=== PATIENT | female | born 1955 | race Caucasian/White ===

== ENCOUNTER → 2017-10-10 | Outpatient (CLI) | payer OTHER ==
[~2017-10-10] MED LIST: ALBIPROI INH; ALISKIREN PO; AMIT10 PO; AMLO5; AMOX500 PO; ASPI325 PO; CEPH500 PO; CHOL10002 PO; CIPR250 PO; CIPR500 PO; CITA20 PO; CLIN150 PO; CLON.1 PO; COLC.6 PO; CYAN1000 PO; DOXA1 PO; DOXA2 PO; DOXY100 PO; DULO30; DULO60 PO; FURO20 PO; FURO40 PO; FURO80 PO; Flomax0.4 MG PO; HYDACE5 PO; HYDGUAL120 PO; HYDPAM25 PO; HYDR1TAB94 PO; Hydrocodone-Ap1 EA23 PO; IBUP400 PO; IBUP600 PO; KETO10 PO; LEVFLO500 PO; LEVSOD25 PO; LEVSOD75; LISHYD2025 PO; LOSARTAN POTASS50 MG PO; NAPR500 PO; NAPR550 PO; NITR.4SL SL; Norco 5-325 Ta1 EACH PO; OFLO.3OTSO LEFTEAR; OMEP20ER PO; OXYACE5T PO; PARI1 PO; PHENA100 PO; PHENA200 PO; PRAV20 PO; PRED10 PO; PROM25 PO; Percocet 5-3251 EACH PO; Prednisone20 MG PO; Prilosec Otc20 MG PO; Prilosec20 MG PO; RANI150 PO; RXCLIN PO; RXPHEN200 PO; TOBDEXOPSU BOTHEYES; TRAM50 PO; TRAZ100 PO; Ultram50 MG PO; VALS80 PO; VALSARTAN PO; Zofran Odt8 MG SL; Zofran8 MG PO
== END ==
LOC: LAB SHORT 11:52 → LAB 11:52
PROVIDERS: Obstetrics & Gynecology
DX: Z01.419 Encounter for gynecological examination (general) (routine) without abnormal findings (principal)
CPT/HCPCS: 87624; G0123

== ENCOUNTER 2017-10-26 09:40 | Emergency (ER) | payer OTHER ==
[~2017-10-26] VITALS: Ht 160 cm; Wt 170.1 kg
[2017-10-26] MEDS ORDERED: CYCL10 PO (11:31)
== END 2017-10-26 11:45 | disposition home or self-care (01) ==
LOC: ER 09:40
DX: S20.212A Contusion of left front wall of thorax, initial encounter (principal); I10 Essential (primary) hypertension; Z88.5 Allergy status to narcotic agent; Z88.2 Allergy status to sulfonamides; Z88.6 Allergy status to analgesic agent; Z79.899 Other long term (current) drug therapy; Z87.442 Personal history of urinary calculi; Z87.891 Personal history of nicotine dependence; W19.XXXA Unspecified fall, initial encounter
CPT/HCPCS: 71101; 99283

== ENCOUNTER 2018-01-28 11:05 | Emergency (ER) | payer OTHER ==
[~2018-01-28] VITALS: Ht 170.2 cm; Wt 167.8 kg
[~2018-01-28 11:05] MED LIST changes: +Aspirin EC81 MG PO; +CYCL10 PO
[2018-01-28] MEDS ORDERED: LOSA50 PO (13:31)
[2018-01-28] MEDS ORDERED: DULO60 PO (13:31)
[2018-01-28 14:32] LABS: BASOPHILS ABSOLUTE AUTO 0.05 K/mm3 (0.00-0.23); BASOPHILS PERCENT AUTO 1 % (0-2); EOSINOPHILS ABSOLUTE AUTO 0.15 K/mm3 (0.00-0.68); EOSINOPHILS PERCENT AUTO 2 % (0-6); Hematocrit 39.3 % (33.0-51.0); Hemoglobin 12.9 g/dL (11.5-16.0); IMMATURE GRAN ABSOLUTE AUTO 0.01 K/mm3 (0.00-0.10); IMMATURE GRAN PERCENT AUTO 0 % (0-1); LYMPHOCYTES ABSOLUTE AUTO 1.51 K/mm3 (0.84-5.20); LYMPHOCYTES PERCENT AUTO 24 % (21-46); MONOCYTES ABSOLUTE AUTO 0.39 K/mm3 (0.16-1.47); MONOCYTES PERCENT AUTO 6 % (4-13); Mean Corpuscular HGB 30.8 pg (26.0-34.0); Mean Corpuscular HGB Conc 32.8 g/dL (31.5-36.5); Mean Corpuscular Volume 94 fL (80-100); Mean Platelet Volume 9.9 fL (9.1-12.4); NEUTROPHILS ABSOLUTE AUTO 4.07 K/mm3 (1.96-9.15); NEUTROPHILS PERCENT AUTO 66 % (41-73); Platelet Count 262 K/mm3 (150-400); RDW Coefficient Variation 12.6 % (11.7-14.2); RDW Standard Deviation 43.1 fL (35.1-46.3); Red Blood Cell Count 4.19 M/mm3 (3.80-5.20); White Blood Cell Count 6.18 K/mm3 (4.00-11.30)
[2018-01-28 14:47] LABS: Bun/Creatinine Ratio 19.4 (12.0-20.0); Calcium, Blood 9.3 mg/dL (8.5-10.1); Creatinine, Blood 1.24 mg/dL (0.40-1.00); Potassium, Blood 4.2 mmol/L (3.5-5.5)
[2018-01-28] MEDS ORDERED: AMLO5 PO (16:30)
== END 2018-01-28 16:50 | disposition home or self-care (01) ==
LOC: ER 11:05
PROVIDERS: Emergency Medicine
DX: R51 Headache (principal); I10 Essential (primary) hypertension; Z88.5 Allergy status to narcotic agent; Z88.2 Allergy status to sulfonamides; Z88.6 Allergy status to analgesic agent; Z88.8 Allergy status to other drugs, medicaments and biological substances; Z79.899 Other long term (current) drug therapy; Z87.891 Personal history of nicotine dependence
CPT/HCPCS: 36415; 70450; 80048; 85025; 96361; 96374; 99284-25; J2765; J7030

== ENCOUNTER 2018-06-08 14:57 | Emergency (ER) | payer OTHER ==
[~2018-06-08] VITALS: Ht 170.2 cm; Wt 165.6 kg
[~2018-06-08 14:57] MED LIST changes: +AMLO5 PO; +LOSA50 PO
[2018-06-08 15:40] LABS: BASOPHILS ABSOLUTE AUTO 0.06 K/mm3 (0.00-0.23); BASOPHILS PERCENT AUTO 1 % (0-2); EOSINOPHILS ABSOLUTE AUTO 0.26 K/mm3 (0.00-0.68); EOSINOPHILS PERCENT AUTO 5 % (0-6); Hematocrit 39.6 % (33.0-51.0); IMMATURE GRAN ABSOLUTE AUTO 0.02 K/mm3 (0.00-0.10); IMMATURE GRAN PERCENT AUTO 0 % (0-1); LYMPHOCYTES ABSOLUTE AUTO 1.62 K/mm3 (0.84-5.20); LYMPHOCYTES PERCENT AUTO 31 % (21-46); MONOCYTES ABSOLUTE AUTO 0.38 K/mm3 (0.16-1.47); MONOCYTES PERCENT AUTO 7 % (4-13); Mean Corpuscular HGB Conc 32.8 g/dL (31.5-36.5); Mean Corpuscular Volume 95 fL (80-100); Mean Platelet Volume 9.6 fL (9.1-12.4); NEUTROPHILS ABSOLUTE AUTO 2.89 K/mm3 (1.96-9.15); NEUTROPHILS PERCENT AUTO 55 % (41-73); Platelet Count 279 K/mm3 (150-400); RDW Standard Deviation 44.9 fL (35.1-46.3); Red Blood Cell Count 4.19 M/mm3 (3.80-5.20); White Blood Cell Count 5.23 K/mm3 (4.00-11.30)
[2018-06-08 15:57] LABS: Albumin, Blood 3.7 g/dL (3.4-5.0); Albumin/Globulin Ratio 1.1 (0.8-1.8); Bilirubin, Total 0.3 mg/dL (0.1-1.0); Bun/Creatinine Ratio 19.7 (12.0-20.0); Calcium, Blood 8.5 mg/dL (8.5-10.1); Creatinine, Blood 1.22 mg/dL (0.40-1.00); Globulin, Blood 3.4 g/dL (2.2-4.0); Potassium, Blood 3.9 mmol/L (3.5-5.5); Total Protein, Blood 7.1 g/dL (6.4-8.2)
[2018-06-08] MEDS ORDERED: BUME2 PO (16:22)
[2018-06-08] MEDS ORDERED: POTCHL10ER PO (16:23)
[2018-06-08] MEDS ORDERED: CLON.1 PO (16:36)
[2018-06-08] MEDS ORDERED: CORTISONE60 GM TOP (16:36)
[2018-06-08] MEDS ORDERED: Toprol Xl25 MG PO (16:36)
== END 2018-06-08 16:45 | disposition home or self-care (01) ==
LOC: ER 14:57
PROVIDERS: Physician Assistant
DX: I10 Essential (primary) hypertension (principal); R21 Rash and other nonspecific skin eruption; Z88.5 Allergy status to narcotic agent; Z88.2 Allergy status to sulfonamides; Z88.8 Allergy status to other drugs, medicaments and biological substances; Z79.899 Other long term (current) drug therapy; Z87.891 Personal history of nicotine dependence
CPT/HCPCS: 36415; 80053; 84484; 85025; 93005; 93010; 99283-25

== ENCOUNTER 2018-10-08 22:59 | Emergency (ER) | payer OTHER ==
[~2018-10-08] VITALS: Ht 170.2 cm; Wt 167.8 kg
[~2018-10-08 22:59] MED LIST changes: +BUME2 PO; +CLON.2 PO; +CORTISONE60 GM TOP; +POTCHL10ER PO; +Toprol Xl25 MG PO
[2018-10-09] MEDS ORDERED: PROM25 PO (01:56)
== END 2018-10-09 02:11 | disposition home or self-care (01) ==
LOC: ER 22:59
DX: R11.2 Nausea with vomiting, unspecified (principal); I10 Essential (primary) hypertension; Z87.442 Personal history of urinary calculi; Z87.891 Personal history of nicotine dependence
CPT/HCPCS: 96361; 96374; 96375; 99284-25; J2550; J7120

== ENCOUNTER 2018-11-18 00:40 | Day surgery (SDC) | payer OTHER ==
[2018-11-18] MEDS ORDERED: Zantac150 MG PO (10:02)
[2018-11-18] MEDS ORDERED: CHOL10002 PO (10:04)
[2018-11-18] MEDS ORDERED: VALS80 PO (10:04)
[2018-11-18] MEDS ORDERED: Citalopram HBr40 MG PO (10:04)
[2018-11-18] MEDS ORDERED: PARI1 PO (10:05)
[2018-11-18] MEDS ORDERED: FURO80 PO (10:05)
== END 2018-11-18 09:51 | disposition home or self-care (01) ==
LOC: ATC 00:40
DX: I12.9 Hypertensive chronic kidney disease with stage 1 through stage 4 chronic kidney disease, or unspecified chronic kidney disease (principal); N18.3 Chronic kidney disease, stage 3 (moderate); D63.1 Anemia in chronic kidney disease; E27.8 Other specified disorders of adrenal gland; E55.9 Vitamin D deficiency, unspecified; Z79.899 Other long term (current) drug therapy; Z88.2 Allergy status to sulfonamides
CPT/HCPCS: 36415; 80400; 82533; 96372; J0834

== ENCOUNTER 2018-12-23 10:44 | Inpatient (IN) | payer OTHER ==
[~2018-12-23] VITALS: Ht 170.2 cm; Wt 159.8 kg
--- NOTE | 2018-12-23 09:15 | NUR ---
PT ARRIVED TO ROOM 303 FROM U VIA W/C. PT IS A/O AND INDEPENDENT IN ROOM. ORIENTED TO ROOM AND CALL SYSTEM.
[~2018-12-23 10:44] MED LIST changes: +Citalopram HBr40 MG PO; +Zantac150 MG PO
[2018-12-23] MEDS ORDERED: Bumetanide2 MG (11:07)
[2018-12-23 12:10] LABS: BASOPHILS ABSOLUTE AUTO 0.03 K/mm3 (0.00-0.23); BASOPHILS PERCENT AUTO 1 % (0-2); EOSINOPHILS ABSOLUTE AUTO 0.13 K/mm3 (0.00-0.68); EOSINOPHILS PERCENT AUTO 3 % (0-6); Hematocrit 37.2 % (33.0-51.0); Hemoglobin 12.5 g/dL (11.5-16.0); IMMATURE GRAN ABSOLUTE AUTO 0.01 K/mm3 (0.00-0.10); IMMATURE GRAN PERCENT AUTO 0 % (0-1); LYMPHOCYTES ABSOLUTE AUTO 1.42 K/mm3 (0.84-5.20); LYMPHOCYTES PERCENT AUTO 28 % (21-46); MONOCYTES ABSOLUTE AUTO 0.32 K/mm3 (0.16-1.47); MONOCYTES PERCENT AUTO 6 % (4-13); Mean Corpuscular HGB Conc 33.6 g/dL (31.5-36.5); Mean Corpuscular Volume 89 fL (80-100); Mean Platelet Volume 9.9 fL (9.1-12.4); NEUTROPHILS ABSOLUTE AUTO 3.13 K/mm3 (1.96-9.15); NEUTROPHILS PERCENT AUTO 62 % (41-73); Platelet Count 207 K/mm3 (150-400); RDW Coefficient Variation 13.2 % (11.7-14.2); Red Blood Cell Count 4.16 M/mm3 (3.80-5.20); White Blood Cell Count 5.04 K/mm3 (4.00-11.30)
[2018-12-23 12:32] LABS: Alanine Aminotransfer (ALT/SGP 21 U/L (12-78); Albumin, Blood 3.5 g/dL (3.4-5.0); Albumin/Globulin Ratio 1.1 (0.8-1.8); Alk Phos 66 U/L (50-136); Anion Gap 7 mmol/L (6-16); Aspartate Aminotrans (AST/SGOT 11 U/L (12-37); Bilirubin, Total 0.7 mg/dL (0.1-1.0); Blood Urea Nitrogen 26 mg/dL (8-24); Bun/Creatinine Ratio 20.6 (12.0-20.0); CO2, Blood 29 mmol/L (21-32); Chloride, Blood 109 mmol/L (98-108); Creatinine, Blood 1.26 mg/dL (0.40-1.00); Globulin, Blood 3.2 g/dL (2.2-4.0); Glomerular Filtration Rate 46 (60-); Glucose, Blood 96 mg/dL (70-99); Potassium, Blood 3.6 mmol/L (3.5-5.5); Sodium, Blood 145 mmol/L (136-145); Total Protein, Blood 6.7 g/dL (6.4-8.2); Troponin I <0.015 ng/mL (0.000-0.040)
[2018-12-23 14:54] LABS: Thyroxine (T4) 10.9 ug/dL (4.8-13.9)
[2018-12-23 14:56] LABS: Thyroid Stimulating Hormone 5.18 uIU/mL (0.360-4.800)
[2018-12-23] MEDS ORDERED: Ultram50 MG PO (15:52)
[2018-12-23] MEDS ORDERED: LOSARTAN POTASS50 MG PO (15:52)
[2018-12-23] MEDS ORDERED: OMEPRAZOLE20 MG PO (15:52)
[2018-12-23] MEDS ORDERED: CLON.1 PO (15:52)
[2018-12-23] MEDS ORDERED: Amlodipine Besy10 MG PO (15:55)
[2018-12-23] MEDS ORDERED: MINO2.5 PO (15:56)
[2018-12-23] MEDS ORDERED: DULO60 PO (15:56)
[2018-12-23] MEDS ORDERED: ALBU90OI INH (15:57)
--- NOTE | 2018-12-23 17:20 | NUR ---
Echocardiogram completed.
--- NOTE | 2018-12-23 20:55 | NUR ---
LUCÍA (PA) NOTIFIED OF PERSISTENT HTN W/BP NOW 193/117 AFTER RECIEVING HYDRALAZINE 10MG IV PRN FOR A BP OF 229/117 UPON T/F TO FLOOR. SHE INCREASED THE DOSE TO 10-20MG IV Q4P NOW RESULT. I ALSO ALERTED HER TO PT'S C/O WORSENING MUELLER AND CONT'D ORTHO PAIN AFTER RECIEVING TRAMADOL PRN. LUCÍA WOULD LIKE TO HOLD OFF ON ADDITIONAL PAIN MEDS OR TYLENOL AT THIS TIME TO DETERMINE IF MUELLER IS BP RELATED. SHE IS AWARE OF NAGGING NAUSEA, MISSING HOME (BP) MEDS AND DESIRE FOR MELATONIN AT HS. SHE INTENDS TO REVIEW PT'S CHART AND PLACE ADDITIONAL ORDERS REQUIRED. WCTM AND MEDICATE INDICATED.
--- NOTE | 2018-12-23 21:40 | NUR ---
HYDRALAZINE 20MG IV PRN WAS RECIEVED FOR PERSISTENT HTN, BP NOW 170/139, WILL MONITOR FOR AFFECT.
--- NOTE | 2018-12-23 23:20 | NUR ---
PT BEGAN TO FEEL NAUSEOUS W/EMESIS WHICH SHE THINKS IS RELATED TO "EXCRUCIATING MUELLER" LIKELY ASSOCIATED W/HTN. BP RECHECKED AND IS NOW ELEVATED AGAIN AT 211/138 AFTER HAVING RECIEVED HYDRALAZINE 20MG IV FOR NO IMPROVEMENT. TELEMTRY TECH STATED THAT PT REMAINS NSR BUT HAD INCREASED PVC'S AND HR 80-105 BPM DURING PERIOD OF EMESIS W/HEART PALPITATIONS. LUCÍA (INTERACTIVE DEVELOPER) ALERTED TO CHANGES AND ZOFRAN 4MG IV STAT AND DILAUDID 0.5MG IV NOW X1 WERE RX'D AND GIVEN AT 2318. WILL MONITOR FOR AFFECT.
--- NOTE | 2018-12-23 23:32 | NUR ---
BP NOW 174/130 AFTER ZOFRAN AND DILUAUDID. NEW ORDERS RECIEVED FOR LABETOLOL 10MG IV Q4H PRN. WILL ADMINISTER MED PER PARAMETERS AND REEVALUATE FOR EFFECT. PT STILL NAUSEOUS BUT EMESIS HAS SLOWED.
--- NOTE | 2018-12-23 23:49 | NUR ---
PT NOW DENIES MUELLER PAIN AFTER DILUADID AND NAUSEA CONT'S TO IMPROVE BUT BP REMAINS ELEVATED. SBP CONT'S >200'S AND DBP>100'S. WILL ALERT MD. SHE ALSO DENIES NEED FOR FENTANYL RECENTLY RX'D AND REFUSED [facility] D/T "NOT WANTING HER TO HAVE IT D/T SWELLING ISSUES". WILL ENSURE MD'S ARE AWARE.
--- NOTE | 2018-12-24 | NUR ---
PT AGAIN BEGAN TO PROFUSELY VOMIT W/DIAPHORESIS AND TREMORS. HER MUELLER RETURNED BUT WAS MILDER (09/13) AND SHE CONT'S TO C/O BLURRED VISION, DIZZYNESS AND "WOOSHING" IN HER EARS THAT COINCIDE W/NAUSEA SPELLS. SHE STILL DENIES CP, JAW PAIN OR RADIATING PAIN BUT SAYS SENSATION IS DAMPENED IN L.ARM AFTER FALL INJURY. PT SEEMS TO BE GETTING WORSE DESPITE MULTIPLE INTERVENTIONS ATTEMPTED. DIRECTOR OF CURRICULUM TO BE CALLED IF SYMPTOMS AND PRESENTATION PERSISTS.
--- NOTE | 2018-12-24 01:05 | NUR ---
RESULT OF MANAGER BABY: SUSTAINED HTN W/SBP 196-236 AND DBP 112-126. BP TAKEN ON BOTH ARMS W/MANUAL CONFIRMATION. PT'S NAUSEA PERSISTED T/O MANAGER BABY BUT EMESIS SUBSIDED. DIZZYNESS, BLURRED VISION, DIAPHORESIS AND MUELLER WORSENED W/NAUSEA SPELLS. PT CONT'D W/TREMORS DESPITE WHETHER OTHER SYMPTOMS WERE PRESENT. -ZOFRAN 4MG IV PRN GIVEN AT 0038, PT'S EMESIS SUBSIDED AND NAUSEA IMPROVED. -LABETOLOL 20MG IV PRN GIVEN AT 0038, BP CONT'D HYPERTENSIVE BUT IMPROVED TO 180/99, HR 57 BPM. -CLONIDINE 0.2MG PO PRN GIVEN AT 0052 W/PLAN TO R[place] S/S, PRESENTATION AND VITALS IN 1 HR. PLAN: IF HTN PERSISTS AND PT CONT'S SYMPTOMATIC, T/F TO HIGHER ACUITY MAY BE WARANTED. WCTM CLOSELY AND NOTIFY MD'S APPROPRIATE.
--- NOTE | 2018-12-24 01:18 | NUR ---
CLAY CASTER CALLED D/T PREVIOUSLY DESCRIBED SYMPTOMS AND PRESENTATION PERSISTING. BP NOW 196/112 BUT NAUSEA, DIAPHORESIS, MUELLER, TREMORS, DIZZYNESS AND BLURRED VISION REMAIN. VOMITING HAS BECOME WORSE THOUGH AND ISN'T SUBSIDING. CLAY CASTER TEAM ARRIVED TO ROOM AT 0016.
--- NOTE | 2018-12-24 01:50 | NUR ---
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 N/V SUBSIDED W/O FURTHER PRN MEDS BUT PT DID REPORT "SEEING STARS" AT THAT TIME. BP REMAINS ELEVATED AT 205/111, HR 67. WCTM CLOSELY, RECHECK VITALS AND NOTIFY MD APPROPRIATE.
--- NOTE | 2018-12-24 02:12 | NUR ---
BP 209/107, HR 70. PT CONT'S TO MUELLER BUT DENIES N/V AND DOESN'T APPEAR DIAPHORETIC AT THIS TIME. "SEEING STARS" IS INTERMITTENT. WILL UPDATE MD TO CURRENT STATUS TO DETERMINE PLAN.
--- NOTE | 2018-12-24 02:39 | NUR ---
DAVID BP (W/LONG CUFF) IS 223/108, HR 72 BPM AND RFA BP IS 214/127, HR 71 BPM. PT REPORTS MUELLER "RAMPING UP" AND SLIGHTLY NAUSEOUS STILL. VISION DEFICITS CONT TO COME/GO.
--- NOTE | 2018-12-24 02:46 | NUR ---
ALERTED TO PERSISTENT HTN AND ASSOCIATED SYMPTOMS. ICU T/F ORDERS RECIEVED. ANIL ANDREW (RN SUPERVISO) AND ESTRADA BRYAN (ICU RELATIONS MGR) ARE AWARE.
--- NOTE | 2018-12-24 03:10 | NUR ---
REPORT PROVIDED TO ELLIE GREENE, PRINTED CIRCUIT BOARDS SOLDER LEVELER AND PT T/F TO ICU 9.
--- NOTE | 2018-12-24 03:41 | NUR ---
ARRIVAL TO ICU / DR. RAMESH COMMUNICATION PT ARRIVED TO ICU 9 APPROX 0314. UPON ARRIVAL, PT SHAKING, REPORTS MASSIVE HEADACHE, BP ELEVATED, SEE FLOWSHEET. PT IMMEDIATELY BEGINS VOMITING WHEN TRANSFERRED TO ICU BED. UPDATED DR. RAMESH AND RECEIVED NEW ORDERS FOR ANTIEMETICS. ALSO DISCUSSED POSSIBLE CARDIOLOGY CONSULT, PER DR. RAMESH PT WILL BE EVALUATED BY DAY SHIFT HOSPITALIST FOR NEED OF THIS CONSULT. NICARDIPINE INITIATED. SEE FLOWSHEET. FREEMAN FRAUSTO TO BEDSIDE FOR POWERGLIDE INSERTION.
--- NOTE | 2018-12-24 07:36 | NUR ---
SUMMARY SINCE PREVIOUS NOTE, POWERGLIDE INSERTION UNSUCCESSFUL. FREEMAN DORADO ABLE TO OBTAIN IV IN LEFT SHOULDER. NICARDIPIN TITRATED, SEE FLOWSHEET. DENIES CHEST PAIN/DISCOMFORT. DOES REPORT INTERMITTENT SHORTNESS OF BREATH. PT EXTREMELY ANXIOUS, REPORING A PAINFUL URGE TO URINATE. ATTEMPTED BEDPAN FOR 30 MINUTES, AND PT BECAME SO UNCOMFORTABLE, YELLING "HELP ME, I CAN'T PEE AND IT'S SO PAINFUL." UPDATED DR. RAMESH, NEW ORDER FOR I/O CATH. 1600 OUT. NAUSEA IMPROVED AFTER REGLAN ADMINISTRATION AND PT ABLE TO TOLERATE HER ORAL ANTIHYPERTENSIVES. ALSO REPORTS PAIN IN LEFT SHOULDER AND KNEE FROM PREVIOUS FALL. MEDICATED WITH ULTRAM. DR. NAVAS TO BEDSIDE THIS MORNING FOR ASSESSMENT. NEW ORDERS RECEIVED. REPORT TO FREEMAN ANDERSON TO ASSUME CARE.
--- NOTE | 2018-12-24 08:18 | NUR ---
PT AWAKE, ALERT, COOPERATIVE. STATES HEADACHE IMPROVED. CARDENE GTT AT 2.5 MG/HR, INCREASED UP TO 5 MG/HR FOR SBP 190'S WITH IMPROVEMENT. STATES LESS NAUSEA, NO EMESIS. ASSISTED UP TO COMMODE, MOVES WEAKLY, TOLERATED ACTIVITY FAIR. [address] SOTELO HERE-UPDATED. CLARIFIED BP MEDS-TO START CLONIDINE PATCH AFTER NOON AND DC PO CLONIDINE. 24 HOUR URINE STARTED
--- NOTE | 2018-12-24 10:18 | NUR ---
PT SLEEPING WITHOUT COMPLAINTS. HAD SMALL AMOUNT BREAKFAST BUT HAD SOME NAUSEA NO EMESIS. BP IMPROVED. CARDENE DECREASED
--- NOTE | 2018-12-24 14:21 | NUR ---
DR SOTELO HERE-UPDATED. CARDENE OFF PER ORDERS. PO LABETOLOL GIVEN. PT C/O HEADACHE, ROOM DARKENED, QUIET FOR COMFORT. REFUSES TYLENOL. C/O NAUSEA BUT INSISTED TO EAT, JUST HAD PEARS. RX FOR NAUSEA, REVIEWED PLAN OF CARE.
--- NOTE | 2018-12-24 15:23 | NUR ---
PT ASSISTED UP TO BEDSIDE COMMODE, DOES BETTER WITH ACTIVITY. STATES STILL HAS HEADACHE, NO BLURRED VISION, SKIN W/D. BP ELEVATED-PRN MED GIVEN.
--- NOTE | 2018-12-24 16:26 | NUR ---
PT HAD BEEN RESTING QUIETLY IN BED. STATED HEADACHE WORSE VERY SUDDENLY, SMALL EMESIS. NO NEURO DEFICITS. BP ELEVATED. IV LABETOLOL GIVEN WITHOUT EFFECT. ZOFRAN GIVEN, NAUSEA RESOLVED. NOTIFIED DR. SOTELO WITH UPDATE-TO PLACE ORDERS.
--- NOTE | 2018-12-24 16:45 | NUR ---
PT'S SBP UP TO 216. RX WITH FENTANYL AND STATES HEADACHE NOW GONE. HYDRALAZINE GIVEN. BP REMAINS ELEVATED BUT IMPROVING. WILL MONITOR CLOSELY. PT STATES FEELS BETTER, TALKATIVE.
--- NOTE | 2018-12-24 17:13 | NUR ---
STATES FEELING SOME BETTER. SBP 180'S NSR.
--- NOTE | 2018-12-24 18:12 | NUR ---
BLOOD PRESSURE IMPROVED BUT HAVING NAUSEA. STATES HEADACHE AT LEVEL 5-TOLERABLE TO HER. WATCHING TV, NO DISTRESS. PIV X 2 INTACT.
--- NOTE | 2018-12-24 18:33 | NUR ---
NAUSEATED WITH 200 CC EMESIS. UP TO BSC. HAD REFUSED DINNER. WILL HOLD 1800 MED FOR NOW.
--- NOTE | 2018-12-24 20:20 | NUR ---
ASSUMED CARE. PT CO PERSISTENT NAUSEA W BELCHING, ALSO CO HEADACHE. PT HAS BEEN MED W REGLAN & FENTANYL. TRYING TO RELAX, PT ACKNOWLEDGES DISCOURAGEMENT W PERSISTANT NAUSEA & HEADACHE. UP TO BSC W SBA & USES WALKER, VOIDING SMALL AMTS CL YELLOW URINE. 24H URINE COLLECTION IN PROGRESS, ON ICE. PT ALSO CO L SHOULDER PAIN WHICH IS CHRONIC, BUT THIS IS OF LESS CONCERN TO HER THAN THE NAUSEA. CALL LIGHT IN REACH.
--- NOTE | 2018-12-25 00:40 | NUR ---
UP TO BSC HOURLY TO VOID. PT HAS BEEN MED W REGLAN, ZOFRAN, LABETALOL, HYDRALAZINE, ULTRAM & FENTANYL, AND MELATONIN.
[2018-12-25 03:50] LABS: Hematocrit 38.7 % (33.0-51.0); Hemoglobin 13.1 g/dL (11.5-16.0)
[2018-12-25 04:06] LABS: Albumin, Blood 3.6 g/dL (3.4-5.0); Anion Gap 7 mmol/L (6-16); Blood Urea Nitrogen 18 mg/dL (8-24); Bun/Creatinine Ratio 19.4 (12.0-20.0); CO2, Blood 32 mmol/L (21-32); Chloride, Blood 103 mmol/L (98-108); Creatinine, Blood 0.93 mg/dL (0.40-1.00); Glomerular Filtration Rate >60 (60-); Glucose, Blood 118 mg/dL (70-99); Magnesium, Blood 1.7 mg/dL (1.6-2.4); Phosphorus, Blood 2.5 mg/dL (2.5-4.9); Potassium, Blood 3.7 mmol/L (3.5-5.5); Sodium, Blood 142 mmol/L (136-145)
--- NOTE | 2018-12-25 04:30 | NUR ---
NICARDIPINE GTT WAS STARTED & HAS BEEN TITRATED UP TO 10MG/HR. PT HAS ALSO BEEN MED W LABETALOL, HYDRALAZINE, FENTANYL & ZOFRAN. NO EMESIS TONOC, BUT FREQ BELCHING. CONT TO BE UP FREQ TO BSC TO VOID SM AMTS. URINE COLLECTION CONT & ON ICE.
--- NOTE | 2018-12-25 06:03 | NUR ---
PT IS SLEEPING SOUNDLY AT THIS TIME. NICARDIPINE CONT AT 10MG/HR. CONT TO MED W LABETALOL & HYDRALAZINE PRN. CALL LIGHT IN REACH.
--- NOTE | 2018-12-25 07:15 | NUR ---
BEGINNING OF SHIFT Assumed care at 0700 with Cary MILLARD. Bedside report recieved from Isha MILLARD. Pt on 3 LPM NC. SpO2 93%. Nicardipine infusing at 10 mg/hr. SBP 150-160. Pt states she is not feeling nauseous and requests soda and saltine crackers.
--- NOTE | 2018-12-25 08:30 | NUR ---
DR MI IN TO SEE PT Provider at bedside at 0800. BP meds discussed. Provider orders for nicardipine to be titrated off. Plan to manage BP with PO and IV push medications. Disucssed diuresis. This RN discussed pt's supplemental O2 requirements. Also discussed that pt had productive cough per night RN. Plans for chest xray to be obtained. Pt states headache. Notified pt that IV fentanyl is no longer available. Pt states she typically drinks "a couple cups of coffee" per day. Coffee provided to pt. Will continue to assess pain.
--- NOTE | 2018-12-25 08:45 | NUR ---
24 HOUR URINE COLLECTION Test restarted at 0815, to be complete at 0815 on 12/26/18. O2 titrated from 3 LPM to 2 LPM. SpO2 91%.
--- NOTE | 2018-12-25 09:07 | NUR ---
BP 119/58; NICARDIPINE GTT PLACED ON STANDBY. PT C/O HEADACHE; WOULD LIKE TO TRY AND TAKE NAP.
--- NOTE | 2018-12-25 11:48 | NUR ---
RECEIVED REPORT FROM FREEMAN DONALDSON.
--- NOTE | 2018-12-25 12:00 | NUR ---
PT TO IMAGING Telephone report given to Bianca MILLARD. Pt to imaging for CXR and CT. Pt to room 309 when imaging complete. Chart and belongings transferred with patient.
--- NOTE | 2018-12-25 12:40 | NUR ---
RECEIVED PAITENT TO ROOM FROM PCU. CT AND CXR COMPLETED PRIOR TO ARRIVAL. PT AWAKE ALERT ABLE TO PIVOT TRANSFER TO BED. BED LOW AND IN LOCKED POSITION CALL LIGHT WITHIN REACH. EXPLAINED FREQUENT ROUNDING AND ORIENTED PT TO ROOM.
--- NOTE | 2018-12-25 18:09 | NUR ---
ICU TRANSFER THIS AFTERNOON. PLEASANT COOPERATIVE. MEDS GIVEN FOR C/O HEADACHE DENIES ANY CP, SOB OR NAUSEA. EATING AND DRINKING WELL. STANDBY ASSIST. 24 HOUR URINE COLLECTION IN PROGRESS. IF ADDITIONAL CONTAINERS NEEDED MUST BE THE RED CONTAINER WITH ACID ADDITIVE. HX OF HTN AND ON HYPERTENSIVE GTT WHILE IN ICU NOW DISCONTINUED AND ON PO BP MEDS. POSSIBLE DC TOMORROW.
--- NOTE | 2018-12-26 04:32 | NUR ---
SHIFT SUMMARY PT PLEASANT AND COOPERATIVE. DENIES ANY CHEST PAIN. PT DOES CONTINUE TO HAVE A HEADACHE, MEDICATED MULTIPLE TIMES WITH FIORINAL 1 TAB AND ONE TIME WITH TYLENOL. OTHERWISE PT HAS HAD NO COMPLAINTS. 24 HOUR URINE CONTINUES TO BE COLLECTED. PT REMAINS ON 2 L O2 NC WITH O2 SATS IN THE MID 90'S. BLE'S EDEMATOUS, FEET SWOLLEN AND RED. TELEMETRY UNIT IN PLACE, READING SR 65. OFFERED PT SHOWER THIS EVENING BUT PT DECLINED STATING SHE WOULD LIKE TO SLEEP. OTHERWISE NO ACUTE CHANGES. VSS. WILL CONTINUE TO MONITOR.
[2018-12-26 04:41] LABS: Hematocrit 37.1 % (33.0-51.0); Hemoglobin 12.2 g/dL (11.5-16.0)
[2018-12-26 05:00] LABS: Albumin, Blood 3.3 g/dL (3.4-5.0); Anion Gap 7 mmol/L (6-16); Blood Urea Nitrogen 29 mg/dL (8-24); Bun/Creatinine Ratio 14.2 (12.0-20.0); CO2, Blood 32 mmol/L (21-32); Calcium, Blood 8.9 mg/dL (8.5-10.1); Chloride, Blood 104 mmol/L (98-108); Creatinine, Blood 2.04 mg/dL (0.40-1.00); Glomerular Filtration Rate 26 (60-); Glucose, Blood 103 mg/dL (70-99); Magnesium, Blood 1.9 mg/dL (1.6-2.4); Phosphorus, Blood 3.5 mg/dL (2.5-4.9); Potassium, Blood 3.2 mmol/L (3.5-5.5); Sodium, Blood 143 mmol/L (136-145)
--- NOTE | 2018-12-26 17:17 | NUR ---
SHE IS LYING ON HER L SIDE RESTING AFTER HAVING AN EXPLOSIVE BM IN THE BATHROOM. SHE HAS BEEN IN ABD DISTRESS THIS AFTERNOON D/T PAIN IN HER ABD AND NEAR THE RECTUM. SHE ATTRIBUTED IT TO BEING CONSTIPATED. SHE SAYS IT HAS BEEN 4 DAYS SINCE HER LAST BM. SHE IS GLAD TO BE STAYING ONE MORE NIGHT AND PLANS TO GO HOME TOMORROW AFTER HER DISCUSSION WITH THIS MORNING. TELE WAS NSR AND HAS BEEN DC'D. 24 HR URINE WAS SENT TO THE LAB THIS MORNING JUST AFTER 8AM. ORAL POTASSIUM REPLACEMENT GIVEN TODAY. APICAL HAS BEEN LOW 50 BTS/MIN BUT UP INTO THE LOW 60'S A LOT OF THE TIME. BP HIGH THIS AFTERNOON BEFORE AFTERNOON ANTIHYPERTENSIVES GIVEN. WILL CONTINUE CARE.
[2018-12-27 04:48] LABS: Hemoglobin 12.3 g/dL (11.5-16.0)
[2018-12-27 05:07] LABS: Albumin, Blood 3.2 g/dL (3.4-5.0); Anion Gap 6 mmol/L (6-16); Blood Urea Nitrogen 36 mg/dL (8-24); Bun/Creatinine Ratio 20.2 (12.0-20.0); CO2, Blood 31 mmol/L (21-32); Calcium, Blood 9.3 mg/dL (8.5-10.1); Chloride, Blood 104 mmol/L (98-108); Creatinine, Blood 1.78 mg/dL (0.40-1.00); Glomerular Filtration Rate 31 (60-); Glucose, Blood 120 mg/dL (70-99); Phosphorus, Blood 3.8 mg/dL (2.5-4.9); Potassium, Blood 3.9 mmol/L (3.5-5.5); Sodium, Blood 141 mmol/L (136-145)
--- NOTE | 2018-12-27 05:09 | NUR ---
SHIFT SUMMARY NO ACUTE CHANGES THIS SHIFT. PT REPORTS THAT SHE WAS FEELING BETTER THIS EVENING THAN SHE HAD DURING THE DAY. HOWEVER, PT CONTINUES TO HAVE FREQUENT HEADACHES. MEDICATED X 2 W/ FIORINAL 1 TAB. PT SLEPT THROUGH MOST OF THE NIGHT. ATE AND DRANK WELL. ASIDE FROM HEADACHE NO COMPLAINTS OF PAIN. VSS. PT RESTING IN BED AT THIS TIME. WILL CONTINUE TO MONITOR.
[2018-12-27] MEDS ORDERED: FURO40 PO (10:52)
[2018-12-27] MEDS ORDERED: ASPI81CH PO (10:52)
[2018-12-27] MEDS ORDERED: HYDR10 PO (10:55)
[2018-12-27] MEDS ORDERED: LABE200 PO (10:56)
[2018-12-27] MEDS ORDERED: POTA10T PO (10:58)
[2018-12-27] MEDS ORDERED: MELATONIN5 M1 PO (10:58)
[2018-12-27] MEDS ORDERED: XARELTO20 MG PO (10:59)
[2018-12-27] MEDS ORDERED: LEVOFLOXACIN250 MG PO (11:01)
[2018-12-27] MEDS ORDERED: TRAM50 PO (11:03)
[2018-12-27 13:07] LABS: METANEPHRINE, UR 61 ug/L (Undefined)
--- NOTE | 2018-12-27 15:08 | NUR ---
DISCHARGED TO HOME AT 1220 WITH INSTRUCTIONS, 1 RX AND BELONGINGS. SHE HAD MILD STOMACH UPSET OFF AND ON THIS MORNING. HER L ARM CHRONIC PAIN WAS BOTHERING HER. SHE WAS VERY JOVIAL AND SAID SHE FELT MUCH BETTER AND WAS EXCITED TO GO HOME. ANDRESBrandt CALLED ME LATER TO LET ME KNOW THAT BILL HAD PICKED UP ALL HER PRESCRIPTIONS PRIOR TO THEM SEEING THE DOSE CHANGE ON THE LEVAQUIN. THE 2 FAXES WERE SENT WITHIN 30 MIN OF EACH OTHER. I CALLED BILL AT HOME AND EXPLAINED SHE IS TO BREAK HER LEVAQUIN TABLETS IN HALF AND ONLY TAKE 1/2 A TAB A DAY FOR 5 DAYS AND SHE WOULD HAVE LEFTOVERS. I EXPLAINED THE LOWER DOSE IS BECAUSE OF HER LOW KIDNEY FUNCTION. SHE SAID SHE UNDERSTOOD.
[2019-01-01 08:08] LABS: ALDOSTERONE <1.0 ng/dL (0.0-30.0)
[2019-01-03 10:07] LABS: CREATININE, URINE 107.1 mg/dL (Not Estab.)
== END 2018-12-27 12:16 | disposition home or self-care (01) | DRG 280 ==
LOC: ER 10:44 → MEDS 10:45 → ICUW 10:45 → MEDS 17:58 → ICUW 12-24 02:56 → MEDS 12-25 12:00
PROVIDERS: Emergency Medicine; Internal Medicine Nephrology; ADMIT Internal Medicine
DX: I48.0 Paroxysmal atrial fibrillation (principal); I21.A1 Myocardial infarction type 2; J18.9 Pneumonia, unspecified organism; E27.40 Unspecified adrenocortical insufficiency; N25.81 Secondary hyperparathyroidism of renal origin; Z68.43 Body mass index [BMI] 50.0-59.9, adult; N17.9 Acute kidney failure, unspecified; Z87.891 Personal history of nicotine dependence; K21.9 Gastro-esophageal reflux disease without esophagitis; F32.9 Major depressive disorder, single episode, unspecified; K44.9 Diaphragmatic hernia without obstruction or gangrene; J44.9 Chronic obstructive pulmonary disease, unspecified; I16.0 Hypertensive urgency; E07.81 Sick-euthyroid syndrome; E87.6 Hypokalemia; E88.09 Other disorders of plasma-protein metabolism, not elsewhere classified; E66.01 Morbid (severe) obesity due to excess calories; I35.0 Nonrheumatic aortic (valve) stenosis; Z79.82 Long term (current) use of aspirin; I12.9 Hypertensive chronic kidney disease with stage 1 through stage 4 chronic kidney disease, or unspecified chronic kidney disease; N18.3 Chronic kidney disease, stage 3 (moderate)
CPT/HCPCS: 36415; 51701; 71046; 74176; 76770; 80053; 80069; 81050; 82088; 82570; 83735; 83835; 83880; 84244; 84436; 84443; 84484; 84585; 85014; 85018; 85025; 93005; 93010; 96365; 96366; 96375; 96376; 99285-25; C8929; G0378; J0360; J1170; J1940; J1956; J2060; J2405; J2765; J3010; J7050; Q9957

== ENCOUNTER 2019-07-03 13:40 | Emergency (ER) | payer OTHER ==
[~2019-07-03] VITALS: Ht 170.2 cm; Wt 151.9 kg
[~2019-07-03 13:40] MED LIST changes: +ALBU90OI INH; +ASPI81CH PO; +Amlodipine Besy10 MG PO; +Bumetanide2 MG; +HYDR10 PO; +LABE200 PO; +LEVOFLOXACIN250 MG PO; +MELATONIN5 M1 PO; +MINO2.5 PO; +OMEPRAZOLE20 MG PO; +POTA10T PO; +XARELTO20 MG PO
[2019-07-03] MEDS ORDERED: Norco 5-325 Ta1 EACH PO (17:56)
== END 2019-07-03 18:11 | disposition home or self-care (01) ==
LOC: ER 13:40
DX: S22.42XA Multiple fractures of ribs, left side, initial encounter for closed fracture (principal); K21.9 Gastro-esophageal reflux disease without esophagitis; I12.9 Hypertensive chronic kidney disease with stage 1 through stage 4 chronic kidney disease, or unspecified chronic kidney disease; N18.9 Chronic kidney disease, unspecified; Z87.891 Personal history of nicotine dependence; W18.30XA Fall on same level, unspecified, initial encounter
CPT/HCPCS: 71101; 99283-25; A9270-GY

== ENCOUNTER 2020-01-14 13:37 | Emergency (ER) | payer OTHER ==
[~2020-01-14] VITALS: Ht 170.2 cm; Wt 145.6 kg
[2020-01-14 14:20] LABS: BASOPHILS ABSOLUTE AUTO 0.04 K/mm3 (0.00-0.23); BASOPHILS PERCENT AUTO 1 % (0-2); EOSINOPHILS ABSOLUTE AUTO 0.07 K/mm3 (0.00-0.68); EOSINOPHILS PERCENT AUTO 1 % (0-6); Hematocrit 31.1 % (33.0-51.0); Hemoglobin 10.2 g/dL (11.5-16.0); IMMATURE GRAN ABSOLUTE AUTO 0.03 K/mm3 (0.00-0.10); IMMATURE GRAN PERCENT AUTO 0 % (0-1); LYMPHOCYTES ABSOLUTE AUTO 0.76 K/mm3 (0.84-5.20); LYMPHOCYTES PERCENT AUTO 10 % (21-46); MONOCYTES ABSOLUTE AUTO 0.53 K/mm3 (0.16-1.47); MONOCYTES PERCENT AUTO 7 % (4-13); Mean Corpuscular HGB 30.2 pg (26.0-34.0); Mean Corpuscular HGB Conc 32.8 g/dL (31.5-36.5); Mean Corpuscular Volume 92 fL (80-100); Mean Platelet Volume 9.8 fL (9.1-12.4); NEUTROPHILS ABSOLUTE AUTO 6.39 K/mm3 (1.96-9.15); NEUTROPHILS PERCENT AUTO 82 % (41-73); Platelet Count 276 K/mm3 (150-400); RDW Coefficient Variation 14.1 % (11.7-14.2); RDW Standard Deviation 46.4 fL (35.1-46.3); Red Blood Cell Count 3.38 M/mm3 (3.80-5.20); White Blood Cell Count 7.82 K/mm3 (4.00-11.30)
[2020-01-14 14:37] LABS: Albumin, Blood 2.8 g/dL (3.4-5.0); Albumin/Globulin Ratio 0.8 (0.8-1.8); Bilirubin, Total 1.1 mg/dL (0.1-1.0); Bun/Creatinine Ratio 14.6 (12.0-20.0); Creatinine, Blood 1.37 mg/dL (0.40-1.00); Globulin, Blood 3.7 g/dL (2.2-4.0); Potassium, Blood 3.9 mmol/L (3.5-5.5); Total Protein, Blood 6.5 g/dL (6.4-8.2)
[2020-01-14 17:16] LABS: Source, Urine Clean Catch
[2020-01-14 17:21] LABS: Blood, Urine 1+ (Neg); Glucose Qualitative, Urine Neg (Neg); Ketones, Urine 1+ (Neg); Leukocyte Esterase, Urine 2+ (Neg); Nitrite, Urine Neg (Neg); Protein, Urine 2+ (Neg); Specific Gravity, Urine 1.025 (1.003-1.022); Urobilinogen, Urine 1+ (Normal)
[2020-01-14 17:46] LABS: Appearance, Urine Cloudy (Clear); Bilirubin, Urine 1+ (Neg); Color, Urine Yellow (P-Yellow)
[2020-01-14 17:49] LABS: White Blood Cells, Urine 25-50 /hpf (0-5)
[2020-01-14 17:50] LABS: Bacteria Many /hpf; Squamous Epithelial Cells Many /hpf (Few)
[2020-01-14] MEDS ORDERED: AMOCLA875 PO (20:10)
== END 2020-01-14 20:26 | disposition home or self-care (01) ==
LOC: ER 13:37
PROVIDERS: Physician Assistant
DX: N39.0 Urinary tract infection, site not specified (principal); K52.9 Noninfective gastroenteritis and colitis, unspecified; K21.9 Gastro-esophageal reflux disease without esophagitis; I12.9 Hypertensive chronic kidney disease with stage 1 through stage 4 chronic kidney disease, or unspecified chronic kidney disease; N18.9 Chronic kidney disease, unspecified; M79.662 Pain in left lower leg; Z88.2 Allergy status to sulfonamides; Z88.5 Allergy status to narcotic agent; Z79.82 Long term (current) use of aspirin; Z79.899 Other long term (current) drug therapy
CPT/HCPCS: 36415; 74176; 80053; 81001; 83690; 85025; 87086; 93971; 96374; 99284-25; J1885

== ENCOUNTER 2020-07-13 15:34 | Emergency (ER) | payer OTHER ==
[~2020-07-13] VITALS: Ht 170.2 cm; Wt 136.1 kg
[~2020-07-13 15:34] MED LIST changes: +AMOCLA875 PO; -ASPI81CH PO; +Aspir 8181 MG PO
[2020-07-13 16:08] LABS: BASOPHILS ABSOLUTE AUTO 0.05 K/mm3 (0.00-0.23); BASOPHILS PERCENT AUTO 1 % (0-2); EOSINOPHILS ABSOLUTE AUTO 0.15 K/mm3 (0.00-0.68); EOSINOPHILS PERCENT AUTO 3 % (0-6); Hematocrit 36.1 % (33.0-51.0); Hemoglobin 11.3 g/dL (11.5-16.0); IMMATURE GRAN ABSOLUTE AUTO 0.01 K/mm3 (0.00-0.10); IMMATURE GRAN PERCENT AUTO 0 % (0-1); LYMPHOCYTES ABSOLUTE AUTO 1.25 K/mm3 (0.84-5.20); LYMPHOCYTES PERCENT AUTO 27 % (21-46); MONOCYTES ABSOLUTE AUTO 0.25 K/mm3 (0.16-1.47); MONOCYTES PERCENT AUTO 5 % (4-13); Mean Corpuscular HGB 25.9 pg (26.0-34.0); Mean Corpuscular HGB Conc 31.3 g/dL (31.5-36.5); Mean Corpuscular Volume 83 fL (80-100); Mean Platelet Volume 9.8 fL (9.1-12.4); NEUTROPHILS ABSOLUTE AUTO 2.97 K/mm3 (1.96-9.15); NEUTROPHILS PERCENT AUTO 64 % (41-73); Platelet Count 245 K/mm3 (150-400); RDW Coefficient Variation 15.3 % (11.7-14.2); RDW Standard Deviation 45.3 fL (35.1-46.3); Red Blood Cell Count 4.37 M/mm3 (3.80-5.20); White Blood Cell Count 4.68 K/mm3 (4.00-11.30)
[2020-07-13 16:23] LABS: International Normalized Ratio 1.51; Prothrombin Time Results 15.8 Sec (9.7-11.5)
[2020-07-13 16:26] LABS: Albumin, Blood 3.5 g/dL (3.4-5.0); Albumin/Globulin Ratio 0.9 (0.8-1.8); Bilirubin, Total 0.7 mg/dL (0.1-1.0); Bun/Creatinine Ratio 20.7 (12.0-20.0); Calcium, Blood 8.9 mg/dL (8.5-10.1); Creatinine, Blood 1.21 mg/dL (0.40-1.00); Globulin, Blood 3.7 g/dL (2.2-4.0); Total Protein, Blood 7.2 g/dL (6.4-8.2)
== END 2020-07-13 18:13 | disposition home or self-care (01) ==
LOC: ER 15:34
PROVIDERS: Physician Assistant
DX: I12.9 Hypertensive chronic kidney disease with stage 1 through stage 4 chronic kidney disease, or unspecified chronic kidney disease (principal); R42 Dizziness and giddiness; H53.9 Unspecified visual disturbance; N18.9 Chronic kidney disease, unspecified; K21.9 Gastro-esophageal reflux disease without esophagitis; Z79.82 Long term (current) use of aspirin; Z79.01 Long term (current) use of anticoagulants; Z79.899 Other long term (current) drug therapy; Z88.2 Allergy status to sulfonamides; Z88.5 Allergy status to narcotic agent; Z87.891 Personal history of nicotine dependence; Z87.442 Personal history of urinary calculi
CPT/HCPCS: 36415; 70450; 80053; 85025; 85610; 93005; 93010; 99284-25

== ENCOUNTER 2020-11-09 15:01 | Inpatient (IN) | payer OTHER ==
[~2020-11-09] VITALS: Ht 170.2 cm; Wt 170.5 kg
[2020-11-09 15:40] LABS: BASOPHILS ABSOLUTE AUTO 0.05 K/mm3 (0.00-0.23); BASOPHILS PERCENT AUTO 1 % (0-2); EOSINOPHILS ABSOLUTE AUTO 0.13 K/mm3 (0.00-0.68); EOSINOPHILS PERCENT AUTO 2 % (0-6); Hematocrit 33.8 % (33.0-51.0); Hemoglobin 10.5 g/dL (11.5-16.0); IMMATURE GRAN ABSOLUTE AUTO 0.02 K/mm3 (0.00-0.10); IMMATURE GRAN PERCENT AUTO 0 % (0-1); LYMPHOCYTES ABSOLUTE AUTO 1.51 K/mm3 (0.84-5.20); LYMPHOCYTES PERCENT AUTO 21 % (21-46); MONOCYTES ABSOLUTE AUTO 0.38 K/mm3 (0.16-1.47); MONOCYTES PERCENT AUTO 5 % (4-13); Mean Corpuscular HGB 26.6 pg (26.0-34.0); Mean Corpuscular HGB Conc 31.1 g/dL (31.5-36.5); Mean Corpuscular Volume 86 fL (80-100); NEUTROPHILS ABSOLUTE AUTO 4.99 K/mm3 (1.96-9.15); NEUTROPHILS PERCENT AUTO 71 % (41-73); Platelet Count 336 K/mm3 (150-400); RDW Coefficient Variation 15.4 % (11.7-14.2); RDW Standard Deviation 48.4 fL (35.1-46.3); Red Blood Cell Count 3.94 M/mm3 (3.80-5.20); White Blood Cell Count 7.08 K/mm3 (4.00-11.30)
[2020-11-09] MEDS ORDERED: CLON.3 PO (15:44)
[2020-11-09] MEDS ORDERED: DULOXETINE HCL60 M1 PO (15:45)
[2020-11-09] MEDS ORDERED: OMEP20ER PO (15:45)
[2020-11-09] MEDS ORDERED: LOSA50 PO (15:45)
[2020-11-09] MEDS ORDERED: BUSPIRONE HCL10 M3 PO (15:45)
[2020-11-09] MEDS ORDERED: JANTOVEN2.5 M2 PO (15:46)
[2020-11-09 16:00] LABS: Albumin, Blood 3.1 g/dL (3.4-5.0); Albumin/Globulin Ratio 0.8 (0.8-1.8); Bilirubin, Total 0.3 mg/dL (0.1-1.0); Bun/Creatinine Ratio 21.6 (12.0-20.0); Calcium, Blood 8.6 mg/dL (8.5-10.1); Creatinine, Blood 1.62 mg/dL (0.40-1.00); Potassium, Blood 3.5 mmol/L (3.5-5.5); Total Protein, Blood 7.1 g/dL (6.4-8.2)
[2020-11-09 16:06] LABS: International Normalized Ratio 1.28; Prothrombin Time Results 13.6 Sec (9.7-11.5)
[2020-11-09 20:25] LABS: SARS-Cov-2 (COVID-19) PCR, MMC NEGATIVE (NEGATIVE)
[2020-11-09 21:58] LABS: Source, Urine Clean Catch
[2020-11-09 22:01] LABS: Appearance, Urine Clear (Clear); Bilirubin, Urine Neg (Neg); Blood, Urine Neg (Neg); Color, Urine Yellow (P-Yellow); Glucose Qualitative, Urine Neg (Neg); Ketones, Urine Neg (Neg); Leukocyte Esterase, Urine Neg (Neg); Nitrite, Urine Neg (Neg); Protein, Urine 2+ (Neg); Specific Gravity, Urine 1.025 (1.003-1.022); Urobilinogen, Urine NORM (Normal)
[2020-11-09 22:08] LABS: Amorphous Mod (0-Heavy); Bacteria Mod /hpf; Hyaline Casts 0-2 /lpf (0-2); Red Blood Cells, Urine 0-2 /hpf (0-2); Squamous Epithelial Cells Mod /hpf (Few)
[2020-11-10 05:54] LABS: BASOPHILS ABSOLUTE AUTO 0.05 K/mm3 (0.00-0.23); BASOPHILS PERCENT AUTO 1 % (0-2); EOSINOPHILS ABSOLUTE AUTO 0.18 K/mm3 (0.00-0.68); EOSINOPHILS PERCENT AUTO 3 % (0-6); Hematocrit 33.1 % (33.0-51.0); IMMATURE GRAN ABSOLUTE AUTO 0.01 K/mm3 (0.00-0.10); IMMATURE GRAN PERCENT AUTO 0 % (0-1); LYMPHOCYTES PERCENT AUTO 28 % (21-46); MONOCYTES ABSOLUTE AUTO 0.43 K/mm3 (0.16-1.47); MONOCYTES PERCENT AUTO 6 % (4-13); Mean Corpuscular HGB Conc 30.2 g/dL (31.5-36.5); Mean Corpuscular Volume 86 fL (80-100); Mean Platelet Volume 10.2 fL (9.1-12.4); NEUTROPHILS ABSOLUTE AUTO 4.28 K/mm3 (1.96-9.15); NEUTROPHILS PERCENT AUTO 63 % (41-73); Platelet Count 298 K/mm3 (150-400); RDW Coefficient Variation 15.8 % (11.7-14.2); RDW Standard Deviation 49.1 fL (35.1-46.3); Red Blood Cell Count 3.84 M/mm3 (3.80-5.20); White Blood Cell Count 6.85 K/mm3 (4.00-11.30)
[2020-11-10 06:25] LABS: Very Low Density Lipoprot Chol 32 mg/dL (6-32)
[2020-11-10 06:26] LABS: Alanine Aminotransfer (ALT/SGP 21 U/L (12-78); Albumin, Blood 2.9 g/dL (3.4-5.0); Albumin/Globulin Ratio 0.8 (0.8-1.8); Alk Phos 76 U/L (50-136); Anion Gap 6 mmol/L (6-16); Aspartate Aminotrans (AST/SGOT 14 U/L (12-37); Bilirubin, Total 0.4 mg/dL (0.1-1.0); Blood Urea Nitrogen 38 mg/dL (8-24); Bun/Creatinine Ratio 21.2 (12.0-20.0); CHOL/HDL RATIO 4.5; CO2, Blood 25 mmol/L (21-32); Calcium, Blood 8.6 mg/dL (8.5-10.1); Chloride, Blood 111 mmol/L (98-108); Cholesterol 167 mg/dL (50-200); Creatinine, Blood 1.79 mg/dL (0.40-1.00); Globulin, Blood 3.8 g/dL (2.2-4.0); Glomerular Filtration Rate 30 (60-); Glucose, Blood 112 mg/dL (70-99); HDL Cholesterol 37 mg/dL (>39); LDL/HDL RATIO 2.6; Low Density Lipoprotein Chol 98 mg/dL (0-110); Potassium, Blood 3.7 mmol/L (3.5-5.5); Sodium, Blood 142 mmol/L (136-145); Total Protein, Blood 6.7 g/dL (6.4-8.2); Triglycerides 162 mg/dL (30-160)
--- NOTE | 2020-11-10 19:22 | NUR ---
ADMIT NOTE RECEIVED REPORT FROM FREEMAN ALEMAN IN ED. PT TO ROOM AT APPROX 1305. 4 PERSON ASSIST TRANSFER WITH SLIDER SHEET. PT ORIENTED TO ROOM AND CALL LIGHT. EDUCATED ON FALL RISK AND BED ALARM. PT REPORTS HAVING HAD DIARRHEA FOR 1 WEEK BUT REPORTS NO BM IN THREE DAYS. PT REPORTS CHEST PRESSURE, SOB AND WEAKNESS; NO CHEST PRESSURE/SOB SINCE ADMISSION. PT A&Ox3; CALM AND COOPERATIVE WITH CARE. PT SITTING UP ON SIDE OF BED DURING SHIFT, UP WITH 1-2 PERSON ASSIST TO BSC. PT REPORTS PAIN TO BLE AND JOINTS, MEDCIATED PRIOR TO ADMISSION WITH FENTANYL WHICH PT REPORTS WORKED WELL. PT IN AFIB WITH RVR 110-130'S UPON ADMISSION, PT ON 15MG OF CARDIZEM GTT, TITRATED TO 20MG; NOTIFIED DR RAMESH, NEW ORDER FOR ONE TIME DOSE LOPRESSOR PO 25 MG, AND START LOPRESSOR 50 MG AT 2000 FOR BID. PT RECEIVING HEPARIN GTT, TITRATED PER ORDERS. PT DENIES NAUSEA AND DIZZINESS. SOB, SPO2 >90% ON RA, LS DIM. OTHER 500cc BOLUS ADMINISTERED PER ORDERS. VSS. NO OTHER ACUTE CHANGES NOTED DURING SHIFT. REPORT GIVEN TO ONCOMING RN.
--- NOTE | 2020-11-10 23:39 | NUR ---
ASSUMED CARE OF PATIENT AT APPROXIMATELY 1905 FROM MELODY Barrios RN. PATIENT ALERT AND ORIENTED X4. 1-2 ASSIST W/ FWW OUT OF BED. PATIENT REPORTS PAIN IN RIGHT SIDE DUE TO "KIDNEY STONES"; MEDICATED PER EMAR. PATIENT DENIES NUMBNESS, TINGLING, DIZZINESS OR NAUSEA. AFIB 100-120'S ON TELE; CARDIZEM GTT AT 20MLS AT START OF SHIFT; TITRATED DOWN TO 15ML/HR; OXYGEN SATURATION ABOVE 90% ON ROOM AIR. HEPARIN GTT.
[2020-11-11 05:50] LABS: BASOPHILS ABSOLUTE AUTO 0.04 K/mm3 (0.00-0.23); BASOPHILS PERCENT AUTO 1 % (0-2); EOSINOPHILS ABSOLUTE AUTO 0.21 K/mm3 (0.00-0.68); EOSINOPHILS PERCENT AUTO 3 % (0-6); Hematocrit 33.6 % (33.0-51.0); Hemoglobin 10.6 g/dL (11.5-16.0); IMMATURE GRAN ABSOLUTE AUTO 0.03 K/mm3 (0.00-0.10); IMMATURE GRAN PERCENT AUTO 0 % (0-1); LYMPHOCYTES ABSOLUTE AUTO 1.52 K/mm3 (0.84-5.20); LYMPHOCYTES PERCENT AUTO 20 % (21-46); MONOCYTES ABSOLUTE AUTO 0.43 K/mm3 (0.16-1.47); MONOCYTES PERCENT AUTO 6 % (4-13); Mean Corpuscular HGB 26.3 pg (26.0-34.0); Mean Corpuscular HGB Conc 31.5 g/dL (31.5-36.5); Mean Corpuscular Volume 83 fL (80-100); Mean Platelet Volume 10.6 fL (9.1-12.4); NEUTROPHILS ABSOLUTE AUTO 5.29 K/mm3 (1.96-9.15); NEUTROPHILS PERCENT AUTO 70 % (41-73); Platelet Count 275 K/mm3 (150-400); RDW Coefficient Variation 15.5 % (11.7-14.2); RDW Standard Deviation 47.2 fL (35.1-46.3); Red Blood Cell Count 4.03 M/mm3 (3.80-5.20); White Blood Cell Count 7.52 K/mm3 (4.00-11.30)
[2020-11-11 06:11] LABS: Bun/Creatinine Ratio 20.9 (12.0-20.0); Calcium, Blood 8.5 mg/dL (8.5-10.1); Creatinine, Blood 1.82 mg/dL (0.40-1.00); Potassium, Blood 3.8 mmol/L (3.5-5.5)
--- NOTE | 2020-11-11 06:44 | NUR ---
PATIENT SLEPT MAYBE A FEW HOURS LAST NIGHT. HEART RATE TRENDED BACK UP; CARDIZEM CURRENTLY AT 10ML/HR FOR HEART RATE IN 120'S; VSS. MEDICATED FOR KIDNEY STONE PAINS MULTIPLE TIMES.
--- NOTE | 2020-11-11 18:44 | NUR ---
PT HAS BEEN RESTING WELL IN BED T/O THE DAY. DENIES CP AND SOB. SBA TO BEDSIDE COMMODE. EDEMA TO LOWER LEGS AND HANDS NOTED TO BE WORSENING T/O THE SHIFT, DR VIDALES IS AWARE OF THIS AND NOTED THE SAME WELL. PLANS TO CHANGE TO AMIODERONE FROM [facility] AND BEGIN DIURESING PT BEFORE SHE IS ABLE TO GO FOR ANGIO. PT IS ALERT BUT CONFUSED INTERMITTENTLY WITH STRANGE CLAIMS THAT PEOPLE WERE BRINGING OCONNELL INTO HER ROOM "FLAUTING IT" THEN LEAVING WITH THE OCONNELL. AMIODERONE IS INFUSING WELL WITH BOLUS AND DRIP SET TO BEGIN WHEN BOLUS IS COMPLETE, AWAITING DIGOXIN TABLET FROM PHARMACY AT THIS TIME
[2020-11-12 00:36] LABS: BASOPHILS ABSOLUTE AUTO 0.05 K/mm3 (0.00-0.23); BASOPHILS PERCENT AUTO 1 % (0-2); EOSINOPHILS ABSOLUTE AUTO 0.21 K/mm3 (0.00-0.68); EOSINOPHILS PERCENT AUTO 3 % (0-6); Hemoglobin 9.6 g/dL (11.5-16.0); IMMATURE GRAN ABSOLUTE AUTO 0.03 K/mm3 (0.00-0.10); IMMATURE GRAN PERCENT AUTO 0 % (0-1); LYMPHOCYTES PERCENT AUTO 24 % (21-46); MONOCYTES ABSOLUTE AUTO 0.44 K/mm3 (0.16-1.47); MONOCYTES PERCENT AUTO 7 % (4-13); Mean Corpuscular HGB 26.2 pg (26.0-34.0); Mean Corpuscular Volume 87 fL (80-100); Mean Platelet Volume 9.9 fL (9.1-12.4); NEUTROPHILS PERCENT AUTO 66 % (41-73); Platelet Count 294 K/mm3 (150-400); RDW Coefficient Variation 15.5 % (11.7-14.2); Red Blood Cell Count 3.66 M/mm3 (3.80-5.20); White Blood Cell Count 6.73 K/mm3 (4.00-11.30)
[2020-11-12 00:57] LABS: Albumin, Blood 2.8 g/dL (3.4-5.0); Anion Gap 3 mmol/L (6-16); Blood Urea Nitrogen 40 mg/dL (8-24); Bun/Creatinine Ratio 20.3 (12.0-20.0); CO2, Blood 27 mmol/L (21-32); Calcium, Blood 8.7 mg/dL (8.5-10.1); Chloride, Blood 109 mmol/L (98-108); Creatinine, Blood 1.97 mg/dL (0.40-1.00); Glomerular Filtration Rate 27 (60-); Glucose, Blood 107 mg/dL (70-99); Phosphorus, Blood 3.6 mg/dL (2.5-4.9); Potassium, Blood 3.8 mmol/L (3.5-5.5); Sodium, Blood 139 mmol/L (136-145)
--- NOTE | 2020-11-12 06:58 | NUR ---
SHIFT SUMMARY PT A&O X4 W/ SOME FORGETFULNESS REQUIRING REMINDING. VSS. SPO2 > 92% ON RA. MONITOR SHOWING AFIB, HR 100-120's. HEPARIN GTT & AMIO GTT INFUSING PER ORDERS. MD NAVAS IN TO SEE PT W/ NEW ORDERS. NO OTHER EVENTS OVER NIGHT.
--- NOTE | 2020-11-12 10:16 | NUR ---
heparin gtt continue at same rate orders noted.
--- NOTE | 2020-11-13 00:38 | NUR ---
LAB CALLS TO REQUEST DRAWING APTT IN AM WITH DIGOXIN LEVEL ORDERD AT 0700. THIS RN CALLS DAVID IN PHARMACY TO ASK IF THIS TIME IS OKAY TO DRAW APTT. [facility] TO BE DRAWN WITH DIG AT 0700. THIS RN NOTIFIES CASA IN LAB.
[2020-11-13 06:21] LABS: BASOPHILS ABSOLUTE AUTO 0.07 K/mm3 (0.00-0.23); BASOPHILS PERCENT AUTO 1 % (0-2); EOSINOPHILS ABSOLUTE AUTO 0.22 K/mm3 (0.00-0.68); EOSINOPHILS PERCENT AUTO 3 % (0-6); Hematocrit 35.7 % (33.0-51.0); IMMATURE GRAN ABSOLUTE AUTO 0.02 K/mm3 (0.00-0.10); IMMATURE GRAN PERCENT AUTO 0 % (0-1); LYMPHOCYTES ABSOLUTE AUTO 1.76 K/mm3 (0.84-5.20); LYMPHOCYTES PERCENT AUTO 27 % (21-46); MONOCYTES ABSOLUTE AUTO 0.31 K/mm3 (0.16-1.47); MONOCYTES PERCENT AUTO 5 % (4-13); Mean Corpuscular HGB 26.1 pg (26.0-34.0); Mean Corpuscular HGB Conc 30.8 g/dL (31.5-36.5); Mean Corpuscular Volume 85 fL (80-100); Mean Platelet Volume 10.1 fL (9.1-12.4); NEUTROPHILS ABSOLUTE AUTO 4.12 K/mm3 (1.96-9.15); NEUTROPHILS PERCENT AUTO 63 % (41-73); Platelet Count 367 K/mm3 (150-400); RDW Coefficient Variation 15.4 % (11.7-14.2); RDW Standard Deviation 47.2 fL (35.1-46.3); Red Blood Cell Count 4.21 M/mm3 (3.80-5.20)
[2020-11-13 06:54] LABS: Anion Gap 5 mmol/L (6-16); Blood Urea Nitrogen 37 mg/dL (8-24); Bun/Creatinine Ratio 20.3 (12.0-20.0); CO2, Blood 25 mmol/L (21-32); Calcium, Blood 9.1 mg/dL (8.5-10.1); Chloride, Blood 110 mmol/L (98-108); Creatinine, Blood 1.82 mg/dL (0.40-1.00); Digoxin (Lanoxin) 0.47 ug/mL (0.80-2.00); Glomerular Filtration Rate 28 (60-); Glucose, Blood 110 mg/dL (70-99); Phosphorus, Blood 3.6 mg/dL (2.5-4.9); Sodium, Blood 140 mmol/L (136-145)
--- NOTE | 2020-11-13 06:57 | NUR ---
CALL TO DR NAVAS THIS RN REPORTS TO LABS TO DR NAVAS
--- NOTE | 2020-11-13 07:40 | NUR ---
SHIFT SUMMARY PT AOX4, AFIB RATE 100'S-110'S, OCCASIONAL UP INTO 120'S-130'S. DENIES CP. BREATHING EVEN AND UNLABORED. RA. HEPARIN CONTINUED INFUSING THROUGH SHIFT AT ORDERED RATE, NO ADJUSTMENTS. PT C/O SOME R SIDE PAIN AND SHOULDER PAIN, MEDICATED FOR PAIN PER ORDERS WITH GOOD PAIN CONTROL. NS CONTINUES RUNNING AT 50 MLS/HR. MINIMAL ASSIST UP TO BEDSIDE COMMODE.
--- NOTE | 2020-11-13 10:26 | NUR ---
Call to Dr. Preciado to clarify orders "DC NAC" then new NAC order with instructions to "hold for now". NAC orders are to be held until day of angiogram, and then restarted on day of angiogram, which is to be determined by the correctional manager.
[2020-11-13 11:16] LABS: Magnesium, Blood 1.9 mg/dL (1.6-2.4)
[2020-11-13 11:17] LABS: Bun/Creatinine Ratio 20.8 (12.0-20.0); Calcium, Blood 8.7 mg/dL (8.5-10.1); Creatinine, Blood 1.78 mg/dL (0.40-1.00)
[2020-11-13 11:52] LABS: International Normalized Ratio 1.15; Prothrombin Time Results 12.3 Sec (9.7-11.5)
--- NOTE | 2020-11-13 15:45 | NUR ---
Pt appears to be sleeping at this time, lying in bed with HOB slightly elevated. STated earlier that the cardilogist spoke with her and that she will be having a CYRUS/cardioversion tomorrow morning. Consent noted signed and placed on the front of the chart.
--- NOTE | 2020-11-14 00:43 | NUR ---
PT UPDATE PT SLEEPING AT THIS TIME, APPEARS RESTFUL, BREATHING EVEN AND UNLABORED. HR 90'S-100'S AFIB.
[2020-11-14 03:53] LABS: Hematocrit 30.8 % (33.0-51.0); Hemoglobin 9.7 g/dL (11.5-16.0)
[2020-11-14 04:15] LABS: Albumin, Blood 2.8 g/dL (3.4-5.0); Anion Gap 5 mmol/L (6-16); Blood Urea Nitrogen 36 mg/dL (8-24); Bun/Creatinine Ratio 20.5 (12.0-20.0); CO2, Blood 26 mmol/L (21-32); Calcium, Blood 9.1 mg/dL (8.5-10.1); Chloride, Blood 111 mmol/L (98-108); Creatinine, Blood 1.76 mg/dL (0.40-1.00); Glomerular Filtration Rate 29 (60-); Glucose, Blood 101 mg/dL (70-99); Magnesium, Blood 1.9 mg/dL (1.6-2.4); Phosphorus, Blood 4.5 mg/dL (2.5-4.9); Potassium, Blood 4.6 mmol/L (3.5-5.5); Sodium, Blood 142 mmol/L (136-145)
--- NOTE | 2020-11-14 08:10 | NUR ---
SHIFT SUMMARY PT AOX4, BREATHING EVEN AND UNLABORED WHEN AWAKE, PERIOD OF APNEA IN EARLY AM NOTED BY THIS RN, SATS APPEARED TO DROP TO 86% FROM 93% ON RA WITH INCONSISTENT WAVEFORM. PROBE CHANGED, SATS 93-95% ON RA. CALLI RT NOTIFIED BY THIS RN. AFIB 90'S-100'S THROUGH SHIFT. PT DOES NOT REPORT ANY EPISODES OF CP AFTER THIS RN ASKS HER TO NOTIFY. NO CHANGE TO HEPARIN GTT. NS INFUSING PER ORDERS. PT UP TO COMMODE AT BEDSIDE W/MINIMAL ASSIST. GIVEN TRAMADOL PER ORDERS FOR PAIN. IV IN R FA INFUSING. STILL NO BM THIS SHIFT, PT PASSING GAS FREQUENTLY WHILE AWAKE.
--- NOTE | 2020-11-14 17:11 | NUR ---
SHIFT SUMMARY PT A&Ox4; CALM AND COOPERATIVE WITH CARE. CYRUS WITH CARDIOVERSION THIS AM, SUCCESS WITH 1 SHOCK; PT IN [place] 40-50'S. PT SLEEPING DIRECTLY AFTER PROCEDURE, WAKES EASILY TO VERBAL STIMULI BUT QUICKLY FALLING BACK TO SLEEP; A&Ox4 THIS EVENING. PT PLACED ON 15L WITH OXYMIZER AND MAX ON NONREBREATHER DURING PROCUDED, TITRATED DOWN TO 2L WHILE SLEEPING AND THEN RA WHILE AWAKE. PT REPORTS JOINT PAIN, MEDICATED WITH ULTRA PER ORDERS. PT SOB WITH EXERTION, SPO2 >90% ON RA. PT DENIES NAUSEA AND DIZZINESS. VSS. NO OTHER ACUTE CHANGES NOTED. WILL CONTINUE TO MONITOR UNITL REPORT GIVEN TO ONCOMING RN.
[2020-11-15 04:11] LABS: Hematocrit 32.1 % (33.0-51.0)
[2020-11-15 04:34] LABS: Magnesium, Blood 1.9 mg/dL (1.6-2.4)
[2020-11-15 04:35] LABS: Albumin, Blood 3.2 g/dL (3.4-5.0); Anion Gap 5 mmol/L (6-16); Blood Urea Nitrogen 34 mg/dL (8-24); Bun/Creatinine Ratio 19.9 (12.0-20.0); CO2, Blood 26 mmol/L (21-32); Calcium, Blood 9.4 mg/dL (8.5-10.1); Chloride, Blood 110 mmol/L (98-108); Creatinine, Blood 1.71 mg/dL (0.40-1.00); Glomerular Filtration Rate 30 (60-); Glucose, Blood 101 mg/dL (70-99); Phosphorus, Blood 3.9 mg/dL (2.5-4.9); Potassium, Blood 4.5 mmol/L (3.5-5.5); Sodium, Blood 141 mmol/L (136-145)
--- NOTE | 2020-11-15 06:36 | NUR ---
SHIFT SUMMARY NO ACUTE CHANGES THIS SHIFT. PT A&OX4. SP02>90% ON RA. PT HAS A RUNNY NOSE, STATES SHE FEELS LIKE SHES "COMING DOWN WITH A COLD." TELEMETRY READS SR, HR 60'S. PT UP TO BSC W/ WALKER TO VOID THIS SHIFT. PT C/O OF L SHOULDER PAIN THIS SHIFT. MEDICATED W/ TRAMADOL PER EMAR. PT C/O OF HEADACHE THIS SHIFT. MEDICATED W/ TYLENOL AND COFFEE, PT STATES THAT COMBINATION WORKS FOR HER AT HOME. PT SLEPT OFF AND ON T/O NIGHT. CALL LIGHT IN REACH. WILL GIVE REPORT TO ONCOMING NURSE.
--- NOTE | 2020-11-15 17:37 | NUR ---
SHIFT SUMMARY; ASSUMED CARE AT 0700, REPORT FROM MELODY. Gloria/PAXTON DURING SHIFT. INTERMITANT HYPERTENSION, TREATED PER EMAR. UP TO BEDSIDE COMMODE WITH STANDBY ASSIST. WORKED WITH PT TODAY. STATUS CHANGED TO MEDICAL. NO ACUTE MEDICAL CHANGES DURING SHIFT. WILL CONTINUE TO MONITOR AND TREAT UNTIL CHANGE OF SHIFT.
--- NOTE | 2020-11-15 19:47 | NUR ---
TRANSFER REPORT GIVEN TO NURSE OF ROOM 313, [place]. PT A&OX4. SP02>92% oN RA. NO TELEMETRY, VSS. PT C/O OF LEFT SHOULDER PAIN, MEDICATED W/ FENTANYL PER EMAR PRIOR TO TRANSFER. PT TRANSFERRED AT THIS TIME.
--- NOTE | 2020-11-15 20:00 | NUR ---
TRANSFER: REPORT RECIEVED FROM MELODY TEACHER TUTOR AND PT T/F TO ROOM 313 AT 195. SHE'S A/OX4, WAS ORIENTED TO NEW ROOM AND CALL SYSTEM AND TRANSFERRED SELF FROM [facility] TO BED. PT DENIES NEEDS AT THIS TIME BUT IS AWARE TO CALL FOR ASSIST PRN.
[2020-11-16 04:49] LABS: Bun/Creatinine Ratio 21.1 (12.0-20.0); Calcium, Blood 9.3 mg/dL (8.5-10.1); Creatinine, Blood 1.47 mg/dL (0.40-1.00); Potassium, Blood 4.3 mmol/L (3.5-5.5)
--- NOTE | 2020-11-16 06:15 | NUR ---
SUMMARY: PT A/OX4, CALLS APPROPRIATELY AND IS PLEASANT/COOPERATIVE W/CARE. SHE'S UP W/SBA TO BS AND MOVES SLOWLY BUT HAS STABLE GAIT. SHE REMAINS HYPERTENSIVE AT TIMES BUT RECIEVED SCHEDULED BP MEDS FOR IMPROVEMENT. PT DENIES CP AND ALL OTHER S/S CARDIAC DISTRESS. SHE WAS MEDICATED W/TRAMADOL X2 DOSES FOR ADEQUATE RELIEF OF L.SHOULDER PAIN AND RECIEVED MELATONIN AT HS FOR SLEEP. NO ACUTE CHANGES, VSS/AFEBRILE. POSSIBLE D/C HOME W/HOME HEALTH TODAY.
[2020-11-16] MEDS ORDERED: ELIQUIS5 M2 PO (12:32)
[2020-11-16] MEDS ORDERED: ATOR40TA PO (12:35)
[2020-11-16] MEDS ORDERED: FURO40 PO (12:35)
[2020-11-16] MEDS ORDERED: METO25ER PO (12:36)
[2020-11-16] MEDS ORDERED: SENNA LAXATIVE8.6 MG PO (12:36)
--- NOTE | 2020-11-16 16:10 | NUR ---
DC SUMMARY PT DC TO HOME WITH FRIEND AT APPROX 1610. PT AxOx4. PLEASANT AND COOPERATIVE WITH CARE. PT WORKED WITH PHYSICAL THERAPY TODAY AND HAD A BRIEF EPISODE OF GENERAL WEAKNESS, DIZZINESS AND EMOTIONAL DURESS UPON STANDING. ORTHOSTATIC VITALS OBTAINED AND DOCTOR CAME IN FOR FACE TO FACE WITH THE PATIENT. PATIENT FEELING MUCH BETTER AFTER THERAPEUTIC COMMUNICATION AND RESTING FOR A COUPLE HOURS. VITALS REVIEWED. PT MEDICATED FOR PAIN PER EMAR x2 THIS SHIFT. DC INSTRUCTIONS DISCUSSED WITH PATIENT AND FRIEND INCLUDING DC MEDICATIONS, FOLLOW UP APPOINTMENTS AND HOME HEALTH INFORMATION. PT VERBALIZES UNDERSTANDING AND DENIES ANY FURTHER QUESTIONS AT THIS TIME. PT SAFELY ESCORTED OUT VIA WC WITH EMERGENCY MANAGER AND FRIEND. O
== END 2020-11-16 16:24 | disposition home health service (06) | DRG 280 ==
LOC: ER 15:01 → ERHOLD 17:26 → PCU 17:26 → MEDS 11-15 19:50
PROVIDERS: Emergency Medicine; Family Medicine; Internal Medicine Cardiovascular Disease; Internal Medicine Nephrology; Physician Assistant; ADMIT Internal Medicine
PROC: 5A2204Z Restoration of Cardiac Rhythm, Single (ICD-10-PCS; principal; 2020-11-14)
PROC: B24BZZ4 Ultrasonography of Heart with Aorta, Transesophageal (ICD-10-PCS; 2020-11-14)
DX: I21.4 Non-ST elevation (NSTEMI) myocardial infarction (principal); I50.21 Acute systolic (congestive) heart failure; I42.9 Cardiomyopathy, unspecified; N25.81 Secondary hyperparathyroidism of renal origin; N17.9 Acute kidney failure, unspecified; Z68.42 Body mass index [BMI] 45.0-49.9, adult; E27.1 Primary adrenocortical insufficiency; I13.0 Hypertensive heart and chronic kidney disease with heart failure and stage 1 through stage 4 chronic kidney disease, or unspecified chronic kidney disease; Z20.822 Contact with and (suspected) exposure to COVID-19; I48.91 Unspecified atrial fibrillation; K21.9 Gastro-esophageal reflux disease without esophagitis; D63.1 Anemia in chronic kidney disease; M10.9 Gout, unspecified; N18.30 Chronic kidney disease, stage 3 unspecified; E66.01 Morbid (severe) obesity due to excess calories; Z51.5 Encounter for palliative care; F41.8 Other specified anxiety disorders; Z87.442 Personal history of urinary calculi; Z90.49 Acquired absence of other specified parts of digestive tract; Z98.51 Tubal ligation status; Z98.890 Other specified postprocedural states; Z88.2 Allergy status to sulfonamides; Z88.6 Allergy status to analgesic agent; Z79.01 Long term (current) use of anticoagulants; Z79.82 Long term (current) use of aspirin; Z79.899 Other long term (current) drug therapy
CPT/HCPCS: 36415; 71045; 76770; 80048; 80053; 80061; 80069; 80162; 81001; 82272; 83735; 83880; 84443; 84484; 85014; 85018; 85025; 85610; 85730; 87077; 87086; 87186; 93005; 93010; 93306; 93312; 93325; 96365; 96366; 96368; 96375; 96376; 97116; 97162; 97530; 99285-25; A9270; C9113; J0282; J0881; J1160; J1170; J1644; J2250; J2405; J3010; J7030; J7040; J7060; U0004

== ENCOUNTER 2021-01-06 19:13 | Observation (INO) | payer OTHER ==
[~2021-01-06] VITALS: Ht 170.2 cm; Wt 153.4 kg
[~2021-01-06 19:13] MED LIST changes: +DULOXETINE HCL60 M1 PO; +JANTOVEN2.5 M2 PO; -OMEPRAZOLE20 MG PO; +SENNA LAXATIVE8.6 MG PO
[2021-01-06] MEDS ORDERED: BUMETANIDE2 M4 PO (20:06)
[2021-01-06] MEDS ORDERED: ATOR40TA PO (20:07)
[2021-01-06] MEDS ORDERED: METO25ER PO (20:07)
[2021-01-06] MEDS ORDERED: KLOR-CON 1010 ME3 PO (20:08)
[2021-01-06] MEDS ORDERED: OMEPRAZOLE20 MG PO (20:08)
[2021-01-06 20:09] LABS: BASOPHILS ABSOLUTE AUTO 0.02 K/mm3 (0.00-0.23); BASOPHILS PERCENT AUTO 1 % (0-2); EOSINOPHILS ABSOLUTE AUTO 0.02 K/mm3 (0.00-0.68); EOSINOPHILS PERCENT AUTO 1 % (0-6); Hematocrit 38.7 % (33.0-51.0); Hemoglobin 12.2 g/dL (11.5-16.0); IMMATURE GRAN ABSOLUTE AUTO 0.01 K/mm3 (0.00-0.10); IMMATURE GRAN PERCENT AUTO 0 % (0-1); LYMPHOCYTES ABSOLUTE AUTO 0.98 K/mm3 (0.84-5.20); LYMPHOCYTES PERCENT AUTO 28 % (21-46); MONOCYTES ABSOLUTE AUTO 0.26 K/mm3 (0.16-1.47); MONOCYTES PERCENT AUTO 7 % (4-13); Mean Corpuscular HGB 25.6 pg (26.0-34.0); Mean Corpuscular HGB Conc 31.5 g/dL (31.5-36.5); Mean Corpuscular Volume 81 fL (80-100); Mean Platelet Volume 9.8 fL (9.1-12.4); NEUTROPHILS ABSOLUTE AUTO 2.23 K/mm3 (1.96-9.15); NEUTROPHILS PERCENT AUTO 63 % (41-73); Platelet Count 193 K/mm3 (150-400); RDW Coefficient Variation 15.4 % (11.7-14.2); RDW Standard Deviation 45.9 fL (35.1-46.3); Red Blood Cell Count 4.77 M/mm3 (3.80-5.20); White Blood Cell Count 3.52 K/mm3 (4.00-11.30)
[2021-01-06] MEDS ORDERED: BUSPIRONE HCL10 M3 PO (20:09)
[2021-01-06] MEDS ORDERED: ELIQUIS5 M2 PO (20:09)
[2021-01-06] MEDS ORDERED: CLON.3 PO (20:10)
[2021-01-06] MEDS ORDERED: DULOXETINE HCL40 M1 PO (20:11)
[2021-01-06] MEDS ORDERED: LOSA50 PO (20:11)
[2021-01-06 20:29] LABS: Albumin, Blood 3.3 g/dL (3.4-5.0); Albumin/Globulin Ratio 0.9 (0.8-1.8); Bilirubin, Total 0.4 mg/dL (0.1-1.0); Bun/Creatinine Ratio 14.4 (12.0-20.0); Calcium, Blood 8.7 mg/dL (8.5-10.1); Creatinine, Blood 1.46 mg/dL (0.40-1.00); Globulin, Blood 3.7 g/dL (2.2-4.0); Magnesium, Blood 1.7 mg/dL (1.6-2.4); Potassium, Blood 3.9 mmol/L (3.5-5.5); Troponin I 0.057 ng/mL (0.000-0.040)
[2021-01-06 23:10] LABS: Base Excess Venous 2.2 mmol/L; Bicarbonate Venous 25.5 mmol/L (24.0-30.0); PCO2 Venous 46.8 mmHg (38-42); PO2 Venous 45.6 mmHg (38-42); pH Blood Venous 7.38 (7.34-7.37)
--- NOTE | 2021-01-07 00:15 | NUR ---
TRANSFER NOTE REPORT FROM ALLI GIPSON RN. PT ARRIVES TO FLOOR BY JENNIFERRGOLDEN AND IS TRANSFERRED TO BED BY SLIDE SHEET. PT TO RESTROOM WITH FWW. PT ORIENTED TO FLOOR AND UNIT. CALL LIGHT WITHIN REACH. ISOLATION MAINTAINED.
[2021-01-07 04:42] LABS: BASOPHILS ABSOLUTE AUTO 0.01 K/mm3 (0.00-0.23); BASOPHILS PERCENT AUTO 0 % (0-2); EOSINOPHILS ABSOLUTE AUTO 0.01 K/mm3 (0.00-0.68); EOSINOPHILS PERCENT AUTO 0 % (0-6); Hematocrit 38.4 % (33.0-51.0); Hemoglobin 11.7 g/dL (11.5-16.0); IMMATURE GRAN ABSOLUTE AUTO 0.01 K/mm3 (0.00-0.10); IMMATURE GRAN PERCENT AUTO 0 % (0-1); LYMPHOCYTES PERCENT AUTO 33 % (21-46); MONOCYTES ABSOLUTE AUTO 0.34 K/mm3 (0.16-1.47); MONOCYTES PERCENT AUTO 10 % (4-13); Mean Corpuscular HGB 25.4 pg (26.0-34.0); Mean Corpuscular HGB Conc 30.5 g/dL (31.5-36.5); Mean Corpuscular Volume 83 fL (80-100); Mean Platelet Volume 9.6 fL (9.1-12.4); NEUTROPHILS ABSOLUTE AUTO 1.89 K/mm3 (1.96-9.15); NEUTROPHILS PERCENT AUTO 56 % (41-73); Platelet Count 165 K/mm3 (150-400); RDW Coefficient Variation 15.4 % (11.7-14.2); RDW Standard Deviation 46.6 fL (35.1-46.3); Red Blood Cell Count 4.61 M/mm3 (3.80-5.20); White Blood Cell Count 3.36 K/mm3 (4.00-11.30)
--- NOTE | 2021-01-07 05:03 | NUR ---
FORM COVERER SUMMARY ADMITTED FOR ELEVATED TROPONIN. PT IS COVID POSITIVE. FULL CODE. PT BEGAN TO FEEL NAUSEOUS DURING AMBULATION TO RESTROOM. MEDICATED AT THAT TIME. PT BACK TO BED WITHOUT DIFFICULTY. CONTINUES TO HAVE HIGH BLOOD PRESSURE; PT REPORTS EXTENSIVE HISTORY; PT MEDICATED IN THE ED. NO MUELLER OR CP SYMPTOMS. PT RESTING AT THIS TIME. ISOLATION MAINTAINED. CALL LIGHT WITHIN REACH.
[2021-01-07 05:04] LABS: Albumin, Blood 3.1 g/dL (3.4-5.0); Albumin/Globulin Ratio 0.9 (0.8-1.8); Bilirubin, Total 0.3 mg/dL (0.1-1.0); Bun/Creatinine Ratio 13.2 (12.0-20.0); Calcium, Blood 8.5 mg/dL (8.5-10.1); Creatinine, Blood 1.52 mg/dL (0.40-1.00); Globulin, Blood 3.5 g/dL (2.2-4.0); Potassium, Blood 3.9 mmol/L (3.5-5.5); Total Protein, Blood 6.6 g/dL (6.4-8.2); Troponin I 0.121 ng/mL (0.000-0.040)
--- NOTE | 2021-01-07 16:47 | NUR ---
DISCHARGE NOTE PT IS AO. PT IV REMOVED PER DOCUMENTATION. DC INSTRUCTIONS AND MEDICATIONS REVIEWED WITH PT WHO VERBALIZED UNDERSTANDING. PT DRESSED SELF IN HOME CLOTHING. PT BELONGINGS GATHERED FROM ROOM. PT ASSISTED INTO WHEELCHAIR AND WHEELED OFF UNIT TO PRIVATE VEHICLE WITH BELONGINGS PRESENT.
== END 2021-01-07 16:44 | disposition home or self-care (01) ==
LOC: ER 19:13 → MEDS 19:14
PROVIDERS: Student in an Organized Health Care Education/Training Program; ADMIT Internal Medicine
DX: R79.89 Other specified abnormal findings of blood chemistry (principal); I48.91 Unspecified atrial fibrillation; I08.3 Combined rheumatic disorders of mitral, aortic and tricuspid valves; E66.01 Morbid (severe) obesity due to excess calories; I25.2 Old myocardial infarction; I13.0 Hypertensive heart and chronic kidney disease with heart failure and stage 1 through stage 4 chronic kidney disease, or unspecified chronic kidney disease; N18.30 Chronic kidney disease, stage 3 unspecified; I50.20 Unspecified systolic (congestive) heart failure; U07.1 COVID-19; F32.9 Major depressive disorder, single episode, unspecified; Z79.01 Long term (current) use of anticoagulants; Z88.2 Allergy status to sulfonamides; Z88.5 Allergy status to narcotic agent; Z87.891 Personal history of nicotine dependence
CPT/HCPCS: 36415; 71045; 80053; 82803; 83735; 83880; 84484; 85025; 93005; 93010; 96365; 96366; 96368; 96375; 96376; 99285-25; A9270; G0378; J3475; J7030

== ENCOUNTER 2021-12-22 12:23 | Inpatient (IN) | payer OTHER ==
[~2021-12-22] VITALS: Ht 170.2 cm; Wt 149.7 kg
[~2021-12-22 12:23] MED LIST changes: +ATOR40TA PO; +BUMETANIDE2 M4 PO; +BUSPIRONE HCL10 M3 PO; +CLON.3 PO; +DULOXETINE HCL40 M1 PO; +ELIQUIS5 M2 PO; +KLOR-CON 1010 ME3 PO; +METO25ER PO; +OMEPRAZOLE20 MG PO
[2021-12-22 12:54] LABS: BASOPHILS ABSOLUTE AUTO 0.04 K/mm3 (0.00-0.23); BASOPHILS PERCENT AUTO 1 % (0-2); EOSINOPHILS ABSOLUTE AUTO 0.13 K/mm3 (0.00-0.68); EOSINOPHILS PERCENT AUTO 2 % (0-6); Hematocrit 36.7 % (33.0-51.0); Hemoglobin 11.3 g/dL (11.5-16.0); IMMATURE GRAN ABSOLUTE AUTO 0.01 K/mm3 (0.00-0.10); IMMATURE GRAN PERCENT AUTO 0 % (0-1); LYMPHOCYTES ABSOLUTE AUTO 1.05 K/mm3 (0.84-5.20); LYMPHOCYTES PERCENT AUTO 17 % (21-46); MONOCYTES ABSOLUTE AUTO 0.37 K/mm3 (0.16-1.47); MONOCYTES PERCENT AUTO 6 % (4-13); Mean Corpuscular HGB Conc 30.8 g/dL (31.5-36.5); Mean Corpuscular Volume 88 fL (80-100); Mean Platelet Volume 11.4 fL (9.1-12.4); NEUTROPHILS ABSOLUTE AUTO 4.55 K/mm3 (1.96-9.15); NEUTROPHILS PERCENT AUTO 74 % (41-73); Platelet Count 246 K/mm3 (150-400); RDW Coefficient Variation 14.4 % (11.7-14.2); RDW Standard Deviation 46.3 fL (35.1-46.3); Red Blood Cell Count 4.18 M/mm3 (3.80-5.20); White Blood Cell Count 6.15 K/mm3 (4.00-11.30)
[2021-12-22 13:14] LABS: Albumin, Blood 3.3 g/dL (3.4-5.0); Albumin/Globulin Ratio 0.9 (0.8-1.8); Bilirubin, Total 1.1 mg/dL (0.1-1.0); Bun/Creatinine Ratio 16.2 (12.0-20.0); Calcium, Blood 9.2 mg/dL (8.5-10.1); Creatinine, Blood 1.91 mg/dL (0.40-1.00); Globulin, Blood 3.8 g/dL (2.2-4.0); Potassium, Blood 3.9 mmol/L (3.5-5.5); Total Protein, Blood 7.1 g/dL (6.4-8.2)
[2021-12-22] MEDS ORDERED: LOSA50 PO (14:28)
[2021-12-22] MEDS ORDERED: BUME2 PO (14:29)
[2021-12-22] MEDS ORDERED: BUSP10 PO (14:29)
[2021-12-22] MEDS ORDERED: VENL25 PO (14:41)
[2021-12-22] MEDS ORDERED: OMEP20ER PO (15:42)
[2021-12-22] MEDS ORDERED: PREG100 PO (15:42)
[2021-12-22] MEDS ORDERED: POTA10T PO (15:43)
[2021-12-22] MEDS ORDERED: ALBU90OI INH (15:43)
[2021-12-22] MEDS ORDERED: CATAPRES-TTS 31 EAC2 TOP (15:43)
[2021-12-22] MEDS ORDERED: ELIQUIS5 M2 PO (15:44)
[2021-12-22] MEDS ORDERED: METO25ER PO (15:44)
[2021-12-22] MEDS ORDERED: ATOR40TA PO (15:44)
[2021-12-22] MEDS ORDERED: CATAPRES0.3 MG PO (18:00)
[2021-12-23 04:00] LABS: BASOPHILS ABSOLUTE AUTO 0.05 K/mm3 (0.00-0.23); BASOPHILS PERCENT AUTO 1 % (0-2); EOSINOPHILS ABSOLUTE AUTO 0.19 K/mm3 (0.00-0.68); EOSINOPHILS PERCENT AUTO 4 % (0-6); Hematocrit 35.9 % (33.0-51.0); Hemoglobin 10.8 g/dL (11.5-16.0); IMMATURE GRAN ABSOLUTE AUTO 0.02 K/mm3 (0.00-0.10); IMMATURE GRAN PERCENT AUTO 0 % (0-1); LYMPHOCYTES ABSOLUTE AUTO 1.35 K/mm3 (0.84-5.20); LYMPHOCYTES PERCENT AUTO 25 % (21-46); MONOCYTES ABSOLUTE AUTO 0.48 K/mm3 (0.16-1.47); MONOCYTES PERCENT AUTO 9 % (4-13); Mean Corpuscular HGB 26.7 pg (26.0-34.0); Mean Corpuscular HGB Conc 30.1 g/dL (31.5-36.5); Mean Corpuscular Volume 89 fL (80-100); NEUTROPHILS ABSOLUTE AUTO 3.28 K/mm3 (1.96-9.15); NEUTROPHILS PERCENT AUTO 61 % (41-73); Platelet Count 216 K/mm3 (150-400); RDW Coefficient Variation 14.3 % (11.7-14.2); RDW Standard Deviation 46.7 fL (35.1-46.3); Red Blood Cell Count 4.04 M/mm3 (3.80-5.20); White Blood Cell Count 5.37 K/mm3 (4.00-11.30)
[2021-12-23 04:33] LABS: Albumin, Blood 3.1 g/dL (3.4-5.0); Bun/Creatinine Ratio 15.7 (12.0-20.0); Calcium, Blood 8.9 mg/dL (8.5-10.1); Creatinine, Blood 1.91 mg/dL (0.40-1.00); Globulin, Blood 3.2 g/dL (2.2-4.0); Potassium, Blood 3.4 mmol/L (3.5-5.5); Total Protein, Blood 6.3 g/dL (6.4-8.2)
--- NOTE | 2021-12-23 05:34 | NUR ---
SHIFT SUMMARY PT ADMITTED FROM ER. AXO. WALKED INTO BED. IN AFIB, HR 110 WITH DILT GTT @ 5, NO TITRATION REQUIRED THIS SHIFT. VSS. ADMISSION COMPLETE. ON 1LNC. PT DIURESED WELL POST LASIX. AND OTHERWISE HAS RESTED OFF ANHD ON. BED ALARM IN PLACE.
--- NOTE | 2021-12-23 08:32 | NUR ---
Pt sitting up on side of bed, just finished her breakfast. STates that she is having chest pain going across her chest, rates it 9/10. She appears calm, cheerful, and pleasantly conversant. Requested Tylenol for the pain, which was administered. STates that she often has pain most of the time from her breast cancer. She was given Tylenol, but is asking if there is anything else which she could get. STates that her PCP "doesn't believe in pain medication". STates that she was going to have a masectomy for her breast cancer, but since it was taking so long to get the surgery she decided to just let the cancer take its course since it is "very aggressive and moving faster than the time it would take to get in for surgery". She lives with her caregiver, Rebecca. I called Rebecca this morning and gave her an update on present situation with the patient.
--- NOTE | 2021-12-23 09:51 | NUR ---
HEART rate 80-110. Cardizem gtt turned off at this time.
--- NOTE | 2021-12-23 10:01 | NUR ---
Ambulatory with FWW and staff standby assist to void in the bathroom. States that she "feels a little puny" this morning. Heart rate 100s during the activity.
--- NOTE | 2021-12-23 10:52 | NUR ---
Spiritual Care Visit. Pt. is awake in bed and welcomes my visit. Pt. is pleasant but a little unsettled about some of her care decisions. Facilitate a discussion about ethics, nolvia and belief. Pt. demonstrates evidence of engagement and agreeable. Prayed with Pt. Pt. verbalized gratitude for the spiritual care visit.
--- NOTE | 2021-12-23 12:57 | NUR ---
Sitting up on side of bed during Dr. Mantilla rounding. The pt states she is having right sided chest pain, this time 8. Earlier her pain was well managed with Tylenol. Dr. Mantilla said at this time that the patient could take Tylenol again, 5 hours since the last dose. Pt also states that Tramadol is a home medication which works well for her. Call to Caregiver Rebecca to give her an update on the pt's condidition and plan for care.
[2021-12-23] MEDS ORDERED: TOPROL XL50 M1 PO (13:06)
--- NOTE | 2021-12-23 15:06 | NUR ---
Bobbi is sitting up in the chair, states she is hurting a "little bit".
--- NOTE | 2021-12-23 18:47 | NUR ---
summary The pt has had stable vital signs, and heart rate 80-110 at rest, up to 120-130 briefly during activity of walking to bathroom, transfers from bed to chair, etc. Cardizem gtt was turned off at 10 am this morning. Toprol dose was increased to 75mg. Weaned off of her oxygen today, and doing well. She was up in the chair for most of the afternoon, and tolerated this well. Appetite good. Voiding without difficulty, but did ask for dietary supplement from the dietitian for constipation. Transfers and activity done with geriwalker and moving slowly, which is her baseline. She has been Tylenol for right sided chest pain, and this evening was also given Tramadol which she says she takes at home and it works better for her. States that her plan is to go home and to go on hospice.
[2021-12-24 04:26] LABS: Hematocrit 37.7 % (33.0-51.0); Hemoglobin 11.2 g/dL (11.5-16.0); Mean Corpuscular HGB 26.5 pg (26.0-34.0); Mean Corpuscular HGB Conc 29.7 g/dL (31.5-36.5); Mean Corpuscular Volume 89 fL (80-100); Mean Platelet Volume 11.4 fL (9.1-12.4); Platelet Count 244 K/mm3 (150-400); RDW Coefficient Variation 14.4 % (11.7-14.2); RDW Standard Deviation 46.3 fL (35.1-46.3); Red Blood Cell Count 4.22 M/mm3 (3.80-5.20); White Blood Cell Count 5.89 K/mm3 (4.00-11.30)
[2021-12-24 04:46] LABS: Anion Gap 6 mmol/L (6-16); Blood Urea Nitrogen 32 mg/dL (8-24); Bun/Creatinine Ratio 15.9 (12.0-20.0); CO2, Blood 31 mmol/L (21-32); Calcium, Blood 9.1 mg/dL (8.5-10.1); Chloride, Blood 107 mmol/L (98-108); Creatinine, Blood 2.01 mg/dL (0.40-1.00); Glomerular Filtration Rate 27 (60-); Glucose, Blood 99 mg/dL (70-99); Magnesium, Blood 2.2 mg/dL (1.6-2.4); Phosphorus, Blood 4.4 mg/dL (2.5-4.9); Potassium, Blood 3.6 mmol/L (3.5-5.5); Sodium, Blood 144 mmol/L (136-145)
--- NOTE | 2021-12-24 10:00 | NUR ---
ASSUMPTION OF CARE HAYDEN MILLARD AND THAO MILLARD ASSUMED CARE OF PATIENT AT 0700. REPORT TAKEN FROM JUSTIN MILLARD. PATIENT WAS UP IN HER CHAIR DURING REPORT. PATIENT CONTINUES TO BE IN AFIB WITH HR 100-120S DEPENDENT ON ACTIVITY. MEDICATING PER EMAR. OTHER VITAL SIGNS STABLE. MEDICATED PER EMAR FOR PAIN IN RIGHT BREAST AND BL KNEES.
--- NOTE | 2021-12-24 17:19 | NUR ---
SHIFT SUMMARY PATIENT IS A&O X4. CALM AND COOPERATIVE WITH CARE. PATIENT HAS BEEN APPROPRIATE WITH STAFF DURING THIS SHIFT. PATIENT IS STILL SHOWING AFIB ON THE MONITOR WITH HR CURRENTLY SUSTAINING IN THE 100s. OTHER VITALS HAVE BEEN STABLE. MEDICATING PER EMAR FOR HR. PATIENT COMPLAINS OF PAIN IN RIGHT BREAST AND BILATERAL KNEES DURING THE SHIFT. PATIENT VERBALIZED GOOD PAIN RELIEF FROM CURRENT DOSE OF GABAPENTIN. CAREGIVER SUSIE CAME BY THIS AFTERNOON AND EXPRESSED CONCERN THAT THE PATIENT HAS A DNR ORDER BUT IS CURRENTLY A FULL CODE FOR US. AFTER TALKING TO THE PATIENT ABOUT HER CURRENT CANCER DIAGNOSIS AND HER CODE STATUS WISHES IN PRIVATE, IT WAS STATED BY THE PATIENT THAT AT THIS TIME SHE WISHES FOR US TO "DO WHATEVER WE CAN TO KEEP HER ALIVE". DUE TO THIS CONVERSATION, THE PATIENT'S CODE STATUS REMAINS FULL CODE. PATIENT EXPRESSED WISHES TO GO HOME ON HOSPICE AND DISCUSSED THIS WITH MD SEGURA EARLIER TODAY. CURRENTLY THE PLAN IS TO CONTINUE TO MONITOR HER HEART RATE AND RHYTHM AND ADJUST MEDICATIONS NEEDED TO ACHIEVE THIS. PATIENT IS CURRENTLY UP IN CHAIR WITH CALL LIGHT WITHIN REACH. WILL CONTINUE TO MONITOR UNTIL SHIFT CHANGE AT 1900.
--- NOTE | 2021-12-24 18:08 | NUR ---
THROUGHOUT THE DAY HAS MADE LOOSE ACCUSATIONS TO STAFF THAT HER CAREGIVER ITKI COULD BE ABUSING HER BY WITHHOLDING HER CELL PHONE AND FORCING HER TO DRINK WATER. PT STS THAT THIS WAS A MISUNDERSTANDING THAT AND STS THAT SHE DOES NOT FEEL ABUSED BY TIKI. SHE ALSO REPORTS THAT SHE HAS NOT COME TO ANY HARM TO HER, SHE ALSO STS THAT SHE DOES NOT HAVE ANY FEAR OF TIKI. PT DENIES ANY KIND OF VERBAL OR PHYSICAL ABUSE WITHIN THE HOME FROM TIKI. PT DOES AKNOWLEDGE THAT SHE FEELS THAT HER AND TIKI HAVE DIFFERING PERSONALITIES WHICH CAN CLASH AT TIMES, BUT NOTHING THAT HAS MADE HER FEEL UNSAFE WITHIN THE HOME OR IN THE CARE OF TIKI. PT EXPRESSED THAT SHE FEELS TIKI AND HER HAVE A DIFFICULT TIME COMMUNIATING WITH ONE ANOTHER FROM TIME TO TIME BUT AGAIN DOES NOT HAVE ANY FEAR OR CONCERNS ABOUT HER PERSONAL SAFETY.
[2021-12-25 04:47] LABS: Albumin, Blood 3.5 g/dL (3.4-5.0); Anion Gap 7 mmol/L (6-16); Blood Urea Nitrogen 37 mg/dL (8-24); Bun/Creatinine Ratio 15.6 (12.0-20.0); CO2, Blood 31 mmol/L (21-32); Calcium, Blood 9.1 mg/dL (8.5-10.1); Chloride, Blood 104 mmol/L (98-108); Creatinine, Blood 2.37 mg/dL (0.40-1.00); Glomerular Filtration Rate 22 (60-); Glucose, Blood 102 mg/dL (70-99); Phosphorus, Blood 4.8 mg/dL (2.5-4.9); Potassium, Blood 3.8 mmol/L (3.5-5.5); Sodium, Blood 142 mmol/L (136-145)
--- NOTE | 2021-12-25 06:00 | NUR ---
MS. SYLVESTER HEART RATE CONTINUES TO BE SOMEWHAT LABILE, SUSTAINING RATES GREATER THAN 110 DESPITE THE INCREASES TO HER ORAL METOPROLOL.. PRN IV METOPROLOL WAS ADMINISTERED PRESCRIBED X 2. WITH AMBULATION, THE HEART RATE ELVATES INTO THE 130S AND PATIENT ENDORSES INCREASED SHORTNESS OF BREATH. PATIENT DID SHARE THAT SHE HAS HAD THIS ISSUE IN THE PAST WHEN SHE DID NOT RESPOND TO MEDICATION AND HAD TO UNDERGO CARDIOVERSION, WHICH SHE REPORTS WAS SUCCESSFUL. MS. SYLVESTER CONTINUES TO HAVE PAIN TO HER RIGHT BREAST, BILAT KNEES (CHRONIC) AND HAS A NEW ONSET HEADACHE. SHE FREQUENTLY RATES HER PAIN 8/10, AND WITH REASSESSMENT STATES THE PAIN IS LESS BUT STILL GIVES A RATING OF 8-9/10.
--- NOTE | 2021-12-25 08:00 | NUR ---
PT PLEASANT. SLOW TO AWAKEN, SLOW TO ANSWER QUESTIONS CLEARLY. SOMEWHAT DISORIENTED THIS AM. SPOKE TO DR SEGURA ABOUT THIS. ALERTI PRESIDENT, DATE, FAMILY, FORGETFUL ON SOME DETAILS. H/R IRREG. NO MURMUR NOTED. PER TELE AFIB 121. LUNGS CLEAR T/O ON R/A. RESP EASY, UNLABORED. BT X4 LAST BM YEST PER PT. VOIDS 1 ASST, FWW TO BATHROOM. BED IN LOW POSITION,C [facility] IN [facility], CALLS APPROP
--- NOTE | 2021-12-25 12:38 | NUR ---
PT HAS BEEN SLEEPING SINCE ABOUT 09. DOES AWAKEN WHEN TOOK BP AT 1100, THEN BACK TO SLEEP. VSS.
--- NOTE | 2021-12-25 14:07 | NUR ---
SUPERCHARGER REPAIR SUPERVISOR, JOEL CALLED. PT OKAYED UPDATE. ADVISED WE ARE GIVING AN IV RX TO ASSIST IN LOWERING HEART RATE. RATE WAS ABOUT 120, NOW ABOUT 80-90. PT AMIRAH WELL
--- NOTE | 2021-12-25 15:15 | NUR ---
RATE CHANGE TO 17.3 ML/HR (.5MG/MIN) VERIFIED WITH LOUIS RN
--- NOTE | 2021-12-25 15:25 | NUR ---
CURRENT TELE HEART RATE AVERAGING 75-80 / MIN
--- NOTE | 2021-12-25 16:40 | NUR ---
called dr to advise of lower bp. no new orders. l arm 116/94, r arm 92/74
--- NOTE | 2021-12-25 18:14 | NUR ---
PT PLEASANT TODAY. DID AMBULATE SELF 1 ASST TO BATHROOM TODAY. AND TO CHAIR. DR ORDERED AMIODARONE DRIP TODAY. STARTED BOLUS RATE AT 0910, REDUCED RATE AT 1510. BOTH DOSES VERIFIED BY OTHER RNS NOTED. RATE NOW AT HIGH 70'S TO MID 80'S. B/P RT ARM 92/74 AND LEFT ARM 116/[address] NOTIFIED. NO NEW ORDERS. PRESENTLY EATING AND TALKING ON PHONE. NO OTHER NEW CONCERNS NOTED. BED IN LOW POSITION, CALL LITE IN REACH. CALLS APROP
--- NOTE | 2021-12-26 06:00 | NUR ---
NO ACUTE EVENTS OVERNIGHT LAST NIGHT. PATIENT CONTINUES ON THE AMIODARONE DRIP AND ATRIAL FIBRILLATION RATE IS BETTER CONTROLLED IN THE 70S-90S AT REST. IV SITE WITHIN NORMAL LIMITS. PATIENT HAS BEEN TEARFUL THE PAST 2 NIGHTS WHEN SPEAKING ABOUT HER CURRENT SITUATION, SPECIFICALLY NOT FEELING LIKE HER DOCTOR OUTPATIENT IS NOT GIVING HER ALL OF THE INFORMATION SHE NEEDS ABOUT HER CANCER DIAGNOSIS. SHE SAID THAT SHE HAS BEEN TOLD HERE AT THE HOSPITAL THAT HERE BREAST CANCR HAS SPREAD BUT SHE HAD NO KNOWLEDGE OF THAT BEING THE CASE NOR DOES SHE KNOW TO WHERE IT HAS SPREAD. PATIENT WANTS TO GET A SECOND OPINION. PATIENT HAS ALSO BEEN UPSET THAT HER CAREGIVER DOES NOT ALLOW HER TO HAVE HER PERSONAL PHONE, THAT SHE IS NOT ABLE TO CALL HER FAMILY WHILE HERE BECAUSE OF THAT, AND THAT HER CAREGIVER WILL NOT ALLOW HER TO SPEAK WITH ANYONE ON THE PHONE UNLESS SHE, THE CAREGIVER, IS PRESENT. WHEN I INQUIRED ABOUT WHY THAT IS SO, MS. SYLVESTER SAID THAT HER CAREGIVER TELLS HER THAT MS. SYLVESTER JUST CAUSES PROBLEMS WHEN SHE TALKS WITH OTHER PEOPLE. MS. SYLVESTER SAID THAT SHE IS VERY HAPPY WITH THE PHYSICAL CARE THAT HER CAREGIVER PROVIDES, BUT SHE OFTEN FEELS BELITTLED AND NOT FREE TO EXPRESS HER WISHES BECAUSE EVERYTHING LEADS TO AN ARGUMENT OR TO HER CAREGIVER YELLING. I ASKED MS. SYLVESTER IF IT WOULD BE BENEFICIAL IF A ACCOUNT SUPPORT ASSOCIATE MIGH BE HELPFUL IN HELPING HER AND HER CAREGIVER WORK THROUGH THESE DIFFERENCES AND ADDRESS HER CONCERNS. MS. SYLVESTER WOULD LIKE THAT OPTION. SUCH, I WILL PASS THIS INFORMATION ON TO HER ONCOMING NURSE TO DETERMINE IF THIS IS SOMETHING THAT OUR CARE MANAGEMENT OR PALLIATIVE CARE TEAM MAY BE ABLE TO PROVIDE ASSISTANCE OR RESOURCE REFERRAL.
[2021-12-26 07:03] LABS: Albumin, Blood 2.9 g/dL (3.4-5.0); Anion Gap 6 mmol/L (6-16); Blood Urea Nitrogen 41 mg/dL (8-24); Bun/Creatinine Ratio 18.2 (12.0-20.0); CO2, Blood 29 mmol/L (21-32); Calcium, Blood 8.7 mg/dL (8.5-10.1); Chloride, Blood 107 mmol/L (98-108); Creatinine, Blood 2.25 mg/dL (0.40-1.00); Glomerular Filtration Rate 24 (60-); Glucose, Blood 99 mg/dL (70-99); Phosphorus, Blood 4.2 mg/dL (2.5-4.9); Potassium, Blood 3.8 mmol/L (3.5-5.5); Sodium, Blood 142 mmol/L (136-145)
--- NOTE | 2021-12-26 17:56 | NUR ---
SHIFT SUMMARY: PT A&Ox4, FORGETFUL AT TIMES, NAPS OFTEN, COOPERATIVE W/CARE. O2 SATS MAINTAINED >92% ON RA. AFIB ON MONITOR W/RATE CONTROLLED 80s-90s, PT TRANSITIONED TO PO AMIODARONE THIS AM AND INFUSION DC'd. DR SEGURA AT BEDSIDE FOR EXTENSIVE AMOUNT OF TIME TO DISCUSS CURRENT STATUS, PLAN OF CARE AND FURTHER DIAGNOSTIC TESTING FOR EXTENT OF BREAST CANCER. PT, CAREGIVER AND FAMILY MEMBERS ALL APPEAR TO BE IN AGREEMENT OF CARE AT THIS TIME. THIS RN MENTIONS TO CAREGIVER THAT PT IS ASKING FOR HER CELL PHONE SO SHE CAN CALL FAMILY AND RECOMMENDED BRINGING IN HER PHONE OR WRITING DOWN PHONE NUMBERS SO WE CAN ASSIST WITH PHONE CALLS. PT CAREGIVER (TIKI) IS AGREEABLE. NO ACUTE CHANGES TO PT CONDITION THIS SHIFT. AT THIS TIME, PT RESTING QUIETLY IN ROOM WITH CALL LIGHT IN REACH. WILL CONTINUE TO MONITOR AND TREAT ACCORDINGLY UNTIL CHANGE OF SHIFT.
[2021-12-27 04:54] LABS: Albumin, Blood 3.1 g/dL (3.4-5.0); Anion Gap 4 mmol/L (6-16); Blood Urea Nitrogen 44 mg/dL (8-24); Bun/Creatinine Ratio 16.9 (12.0-20.0); CO2, Blood 29 mmol/L (21-32); Chloride, Blood 107 mmol/L (98-108); Creatinine, Blood 2.61 mg/dL (0.40-1.00); Glomerular Filtration Rate 20 (60-); Glucose, Blood 102 mg/dL (70-99); Phosphorus, Blood 4.9 mg/dL (2.5-4.9); Potassium, Blood 4.7 mmol/L (3.5-5.5); Sodium, Blood 140 mmol/L (136-145)
--- NOTE | 2021-12-27 06:21 | NUR ---
PATIENT'S ATRIAL FIBRILLATION RATE REMAINED MOSTLY IN THE 70S-90S RANGE WHILE SLEEPING, AND TICKED UP TO LOW 100S WHEN GETTING UP TO THE BEDSIDED COMMODE. SHE DID HAVE FOUR PAUSES DURING THE NIGHT, 3 OF WHICH OCCURRED SINCE 0500 THIS MORNING, THE LONGEST ONE AT 2.16 SECONDS. MS. SYLVESTER WAS ABLE TO GET UP TO THE BEDSIDE COMMODE WITH THE ASSIST OF 2 STAFF MEMBERS, THIS IS A CHANGE FROM THE PREVIOUS NIGHTS WHEN SHE WAS ABLE TO GET UP WITH THE ASSISTANCE OF ONE STAFF MEMBER AND AMBULATE TO THE BATHROOM. SHE STATES " MY KNEES ARE GETTING WOBBLY." MS. SYLVESTER DOES ENDORSE CHRONIC BILATERAL KNEE PAIN AND THAT THIS OCCURS FROM TIME TO TIME. SHE IS SIGNIFICANTLY DECONDITIONED AND HER WEIGHT IS UP ALMOST 5 KGs SINCE ADMISSION. ES AND Rancho ASSISTED MS. SYLVESTER WITH A COMPLETE BED BATH THIS MORNING AND SHE IS RESTING COMFORTABLY IN BED AT THIS TIME.
[2021-12-27] MEDS ORDERED: AMIODARONE HCL400 M2 PO ×2 (11:31→13:00)
[2021-12-27] MEDS ORDERED: B-1100 M1 PO (11:32)
[2021-12-27] MEDS ORDERED: TRAM50 PO (11:40)
[2021-12-27] MEDS ORDERED: MIRALAX17 GM PO (11:41)
[2021-12-27] MEDS ORDERED: Amiodarone HCl200 MG PO (13:00)
--- NOTE | 2021-12-27 14:18 | NUR ---
DISCHARGE: PT HAS BEEN CLEARED FOR DISCHARGE W/PLAN FOR HOSPICE INITIATION. PT, CAREGIVER AND FAMILY HAVE BEEN GIVEN DISCHARGE INSTRUCTIONS AND PAPERWORK. ALL QUESTIONS HAVE BEEN ANSWERED, IV ACCESS DC'd WNL. PT ASSISTED TO W/C AND ESCORTED FROM UNIT W/OUT INCIDENT.
== END 2021-12-27 13:27 | disposition home health service (06) | DRG 291 ==
LOC: ER 12:23 → PCU 17:44
PROVIDERS: Internal Medicine; Student in an Organized Health Care Education/Training Program; ADMIT Internal Medicine
DX: I13.0 Hypertensive heart and chronic kidney disease with heart failure and stage 1 through stage 4 chronic kidney disease, or unspecified chronic kidney disease (principal); I50.23 Acute on chronic systolic (congestive) heart failure; J96.01 Acute respiratory failure with hypoxia; I31.3 Pericardial effusion (noninflammatory); J91.8 Pleural effusion in other conditions classified elsewhere; Z68.43 Body mass index [BMI] 50.0-59.9, adult; E87.0 Hyperosmolality and hypernatremia; Z66 Do not resuscitate; Z51.5 Encounter for palliative care; E87.6 Hypokalemia; G62.9 Polyneuropathy, unspecified; K21.9 Gastro-esophageal reflux disease without esophagitis; G89.4 Chronic pain syndrome; I25.10 Atherosclerotic heart disease of native coronary artery without angina pectoris; E66.9 Obesity, unspecified; I48.0 Paroxysmal atrial fibrillation; N18.30 Chronic kidney disease, stage 3 unspecified; E03.9 Hypothyroidism, unspecified; M10.9 Gout, unspecified; F41.8 Other specified anxiety disorders; R32 Unspecified urinary incontinence; F43.10 Post-traumatic stress disorder, unspecified; Z85.3 Personal history of malignant neoplasm of breast; Z90.49 Acquired absence of other specified parts of digestive tract; Z98.51 Tubal ligation status; Z87.891 Personal history of nicotine dependence; Z87.442 Personal history of urinary calculi; Z88.2 Allergy status to sulfonamides; Z88.6 Allergy status to analgesic agent; Z79.01 Long term (current) use of anticoagulants; Z79.899 Other long term (current) drug therapy
CPT/HCPCS: 36415; 71045; 71260; 80053; 80069; 83735; 83880; 84484; 85025; 85027; 93005; 93010; 93306; 93971; 94640; 94664; 94760; 94762; 96374-59; 96375-59; 99285-25; A9270; C1751; J0282; J1940; J7060; Q9967